=== PATIENT | female | born 1940 | race Caucasian/White ===

== ENCOUNTER 2017-03-30 08:32 | Outpatient (CLI) | payer OTHER ==
[2013-07-20 13:41] VITALS: BMI 28.1
--- NOTE | 2017-03-30 09:09 | DI ---
EXAM: Three views of the thoracic spine. History: Thoracic back pain. Findings: Atherosclerotic vascular calcifications. Mild to moderate multilevel degenerative disc s pace narrowing with a few prominent anterior osteophytes. Osteopenia. No acute fracture or subluxa tion. Impression: No acute osseous abnormality. Mild to moderate degenerative disc disease.
--- NOTE | 2017-03-30 09:10 | DI ---
EXAM: CHEST FRONTAL AND LATERAL VIEWS HISTORY: Chest pain. COMPARISON: None FINDINGS: Heart size and mediastinal contour within normal limits. No acute infiltrates. María l vascularity with no pleural fluid or pneumothorax. The bony thorax has no acute finding. IMPRESSION: No acute process.
--- NOTE | 2017-03-30 09:12 | DI ---
EXAM: Lumbar spine three view HISTORY: Back pain COMPARISON: None TECHNIQUE: Three views lumbar spine were performed FINDINGS: Sacroiliac joints intact. Sacral arcuate lines intact. Vertebral bodies normal height. No fracture. No subluxation. Multilevel marginal osteophyte formation. Mild multilevel intervert ebral disc space narrowing with moderate intervertebral disc space narrowing L3-L4 and mild to moder ate intervertebral disc space narrowing L2-L3 and L4-L5. Multilevel facet arthrosis. Atherosclerot ic vascular calcification. IMPRESSION: Chronic discogenic degenerative disease and facet arthrosis.
== END 2017-03-30 08:33 | disposition home or self-care (01) ==
LOC: RAD 08:32
PROVIDERS: ATTEND Internal Medicine
DX: R07.9 Chest pain, unspecified (principal); M54.9 Dorsalgia, unspecified

== ENCOUNTER 2017-04-01 06:33 | Outpatient (CLI) ==
[2013-07-20 13:41] VITALS: BMI 28.1
--- NOTE | 2017-04-01 10:34 | NM ---
EXAM: The myocardial perfusion imaging HISTORY: chest pain and shortness of breath COMPARISON: None. TECHNIQUE: The patient was injected 4 mCi of thallium 201 chloride intravenously while at rest. SPE CT imaging of the heart was acquired. The patient was stressed on a treadmill using Michael protocol and at peak exercise injected 24.3 mCi of Tc99m Sestamibi intravenously. Another SPECT imaging of t he heart was performed. Gated cardiac study was acquired. FINDINGS: Post stress study shows normal left ventricular cavity size. Isotope distribution is homo geneous in the left ventricle myocardium. No evidence of exercise induced reversible ischemia. No fixed defect is noted. Left ventricular ejection fraction is 78%. Wall motion shows no abnormality. IMPRESSION: 1. SPECT myocardial imaging at stress and rest is normal 2. Normal cardiac systolic function and normal wall motion
--- NOTE | 2017-04-05 14:52 | STRESSECHO ---
Date of Test: 04/01/17 Reason for Exam: CHEST PAIN, SOB, STENT 2012 Ordering Physician: ALICE العلي Resting EKG: SINUS RHYTHM/NO ACUTE CHANGES Current Medications: CRESTOR, ZEBETA, COZAAR, ZANAFLEX, ATIVAN, NORCO, ASA Physical Findings: S1, S2, NO S3 Target Heart Rate: 119/141 STAGE MPH/GRADE HEART RATE BPM BLOOD PRESSURE mmhg RHYTHM S-T SEGMENT +/- UP DOWN SYMPTOMS,COMMENTS At Rest 65 136/74 SR X NONE 1 1.7/10% 90 144/74 SR X NONE 2 2.5/12% 96 SR X NONE 3 3.4/14% 4 4.2/16% 5 5.0/18% Immediately after 105 SR X FATIGUE Durations of Exercise: 9:29 Maximum Heart Rate Reached: 105 Reason for Termination: FATIGUE 5 MIN POST EXERCISE: HR 66 BPM, BP 138/82, SR, +/- INTERPRETATION: 98% OXYGEN SATURATION WITH EXERCISE ON ROOM AIR METS 5.[address]-T WAVE CHANGES 2. NO CHEST PAIN OR CHEST DISCOMFORT 3. NO ARRHYTHMIAS 4. BLOOD PRESSURE RESPONSE: NORMAL NORMAL LEFT VENTRICULAR CONTRACTILITY--RESTING AND POST EXERCISE SESTAMIBI TO FOLLOW MTDD
--- NOTE | 2017-04-07 13:21 | ECHO2D ---
Date of Exam: 04/01/17 Ordering Physician: ALICE العلي Reason for Echo: CHEST PAIN, SOB, STENT 2013, CAD M-Mode Normal Adult Results LV Dimensions Normal Adult Results AoV Opening excursions >1.6 >1.6 LVEDD-base- 3.5-5.8 4.9 Ao root dimensions 2.0-3.7 3.4 LVESD-base- 3.1-4.6 L. Atrium dimensions 1.9-3.8 4.2 Post. Wall thickness 0.8-1.1 1.2 IV septum (thickness) 0.7-1.2 1.2 Post. Wall excursion 0.72-1.3 NORMAL Septal motion NORMAL Systolic motion R. Ventricular cavity 1.5-2.0 NORMAL LVEF 60% 65% Paradoxical septal wall motion NORMAL 2-D : 2-D M Mode Echocardiogram was performed using apical four chamber and left parasternal long and short axis views. Mitral, tricuspid and aortic valves appear to be normal. Contractility of the left ventricle seems to be normal, so is the cavity size. Left atrial cavity enlarged. Aortic root appears to be normal. There is no pericardial effusion. There is no thrombus noted in the left ventricular or left aortic cavity. No mitral valve prolapse noted. M-MODE: MV: NORMAL AV: NORMAL TV: NORMAL PV: CHAMBER SIZE: ENLARGED LEFT ATRIAL CAVITY WALL MOTION: MAYBE MILD INFERIOR WALL HYPOKINESIA PERICARDIUM: NORMAL INTERPRETATION: 1. LEFT VENTRICULAR HYPERTROPHY 2. ENLARGED LEFT ATRIAL CAVITY 3. LEFT VENTRICULAR EJECTION FRACTION 65% 4. NORMAL VALVES MTDD
--- NOTE | 2017-04-07 13:27 | ECHOSTRESS ---
Date of Exam: 04/01/17 Ordering Physician: ALICE العلي Reason for Echo: CHEST PAIN, SOB, STENT 2012, STRESS TEST--NO ISCHEMIA M-Mode Normal Adult Results LV Dimensions Normal Adult Results AoV Opening excursions >1.6 LVEDD-base- 3.5-5.8 Ao root dimensions 2.0-3.7 LVESD-base- 3.1-4.6 L. Atrium dimensions 1.9-3.8 Post. Wall thickness 0.8-1.1 IV septum (thickness) 0.7-1.2 Post. Wall excursion 0.72-1.3 Septal motion Systolic motion R. Ventricular cavity 1.5-2.0 LVEF 60% Paradoxical septal wall motion 2-D: NORMAL LEFT VENTRICULAR CONTRACTILITY--RESTING AND POST EXERCISE M-MODE: MV: AV: TV: PV: CHAMBER SIZE: WALL MOTION: NORMAL LEFT VENTRICULAR CONTRACTILITY--RESTING AND POST EXERCISE PERICARDIUM: INTERPRETATION: 1. NORMAL LEFT VENTRICULAR CONTRACTILITY--RESTING AND POST EXERCISE MTDD
== END 2017-04-01 06:34 | disposition home or self-care (01) ==
LOC: CAR 06:33
PROVIDERS: ATTEND Internal Medicine
DX: R07.9 Chest pain, unspecified (principal); R06.02 Shortness of breath

== ENCOUNTER 2018-09-07 06:43 | Outpatient (CLI) | payer OTHER ==
[2013-07-20 13:41] VITALS: BMI 28.1
--- NOTE | 2018-09-07 08:34 | ECHO2D ---
Date of Exam: 09/07/18 Ordering Physician: DR. ALICE العلي Room # : OP Reason for Echo: SOB, CAD WITH STENT M-Mode Normal Adult Results LV Dimensions Normal Adult Results AoV Opening excursions >1.6 >1.6 LVEDD-base- 3.5-5.8 4.0 Ao root dimensions 2.0-3.7 3.1 LVESD-base- 3.1-4.6 L. Atrium dimensions 1.9-3.8 4.2 Post. Wall thickness 0.8-1.1 1.2 IV septum (thickness) 0.7-1.2 1.2 Post. Wall excursion 0.72-1.3 NORMAL Septal motion NORMAL Systolic motion R. Ventricular cavity 1.5-2.0 NORMAL LVEF 60% 70% Paradoxical septal wall motion NORMAL 2-D : 2-D M Mode Echocardiogram was performed using apical four chamber and left parasternal long and short axis views. Mitral, tricuspid and aortic valves appear to be normal. Contractility of the left ventricle seems to be normal, so is the cavity size. Enlarged Left atrial cavity size. Aortic root appears to be normal. There is no pericardial effusion. There is no thrombus noted in the left ventricular or left aortic cavity. No mitral valve prolapse noted. M-MODE: MV: NORMAL AV: NORMAL TV: NORMAL PV: CHAMBER SIZE: ENLARGED LEFT ATRIAL CAVITY WALL MOTION: NORMAL PERICARDIUM: NORMAL INTERPRETATION: 1. BORDERLINE LEFT VENTRICULAR HYPERTROPHY WITH ENLARGED LEFT ATRIAL CAVITY 2. NORMAL VALVES 3. NORMAL LEFT VENTRICULAR CONTRACTILITY MTDD
== END 2018-09-07 06:44 | disposition home or self-care (01) ==
LOC: CAR 06:43
PROVIDERS: ATTEND Internal Medicine
DX: R06.02 Shortness of breath (principal); I25.10 Atherosclerotic heart disease of native coronary artery without angina pectoris; Z95.5 Presence of coronary angioplasty implant and graft

== ENCOUNTER 2018-09-08 06:46 | Outpatient (CLI) | payer OTHER ==
[2013-07-20 13:41] VITALS: BMI 28.1
--- NOTE | 2018-09-08 09:33 | ECHOSTRESS ---
Date of Exam: 09/08/18 Ordering Physician: DR. ALICE العلي Reason for Echo: SOB, CAD WITH STENT, STRESS TEST--POSITIVE FOR ISCHEMIA M-Mode Normal Adult Results LV Dimensions Normal Adult Results AoV Opening excursions >1.6 LVEDD-base- 3.5-5.8 Ao root dimensions 2.0-3.7 LVESD-base- 3.1-4.6 L. Atrium dimensions 1.9-3.8 Post. Wall thickness 0.8-1.1 IV septum (thickness) 0.7-1.2 Post. Wall excursion 0.72-1.3 Septal motion Systolic motion R. Ventricular cavity 1.5-2.0 LVEF 60% Paradoxical septal wall motion 2-D: NORMAL LEFT VENTRICULAR CONTRACTILITY--RESTING AND POST EXERCISE M-MODE: MV: AV: TV: PV: CHAMBER SIZE: WALL MOTION: NORMAL LEFT VENTRICULAR CONTRACTILITY--RESTING AND POST EXERCISE PERICARDIUM: INTERPRETATION: 1. NORMAL LEFT VENTRICULAR CONTRACTILITY--RESTING AND POST EXERCISE MTDD
--- NOTE | 2018-09-08 09:48 | STRESSECHO ---
Date of Test: 09/08/18 Ordering Physician: DR. ALICE العلي Occupation: RETIRED Reason for Exam: SOB, CAD WITH STENT Smoking History: NONE Height: 63" Weight: 170 LBS Current Medications: LORTAB, ASA, ZETIA, COZAAR, ZEBETA, ATIVAN Resting EKG: SINUS RHYTHM/ NO ACUTE CHANGES Target Heart Rate: 119/140 S-T SEGMENT STAGE MPH/GRADE HEART RATE BPM BLOOD PRESSURE MMHG RHYTHM +/- ELEVATION DEPRESSION SYMPTOMS AT REST 54 BPM 118/72 MMHG SR X NONE 1 1.7/10% 100 BPM SR X NONE 2 2.5/12% 3 3.4/14% 4 4.2/16% 5 5.0/18% Immediately After 112 BPM 142/72 MMHG SR X FATIGUE Minutes Post Exercise 6:00 53 BPM SR X NONE Minutes Post Exercise DURATION OF EXERCISE: 3:43 MAXIMUM HEART RATE REACHED: 112 BPM REASON FOR TERMINATION: FATIGUE 98% OXYGEN SATURATION WITH EXERCISE ON ROOM AIR METS 6.3 INTERPRETATION: 1. TEST POSITIVE FOR ISCHEMIC ST-T WAVE CHANGES 2. NO CHEST PAIN OR DISCOMFORT 3. NO ARRHYTHMIAS 4. BLOOD PRESSURE RESPONSE: ADEQUATE NORMAL LEFT VENTRICULAR CONTRACTILITY-- RESTING AND POST EXERCISE RECOMMEND: STRESS--CARDIOLITE MTDD
== END 2018-09-08 06:47 | disposition home or self-care (01) ==
LOC: CAR 06:46
PROVIDERS: ATTEND Internal Medicine
DX: R06.02 Shortness of breath (principal); I25.10 Atherosclerotic heart disease of native coronary artery without angina pectoris; Z95.5 Presence of coronary angioplasty implant and graft

== ENCOUNTER 2018-09-11 06:44 | Outpatient (CLI) ==
[2013-07-20 13:41] VITALS: BMI 28.1
--- NOTE | 2018-09-11 10:15 | NM ---
EXAM: Myocardial perfusion imaging HISTORY: Positive stress test COMPARISON: Myocardial perfusion imaging on 04/01/2017 was normal. TECHNIQUE: Patient was injected 3.5 mCi of thallium 201 chloride intravenously while at rest. SPECT imaging of the heart was performed. Patient was stressed on a treadmill and at peak exercise injecte d 24.8 mCi of Tc99m Sestamibi intravenously. Another SPECT imaging of the heart was acquired. Gated cardiac study was also performed. FINDINGS: Post stress images show normal left ventricular cavity size. Slightly reduced perfusion is noted involving the mid septal wall as well as left ventricle apex. These areas show some reperfusi on. Left ventricular ejection fraction is 72%. Wall motion appears normal. IMPRESSION: 1. SPECT myocardial imaging demonstrates mild degree of reversible ischemia involving the left ventr icle apex and mid septal wall. 2. Normal left ventricular ejection fraction
--- NOTE | 2018-09-12 08:36 | STRESSSESS ---
Date of Test: 09/11/18 Ordering Physician: DR. ALICE العلي Occupation: RETIRED Reason for Exam: POSITIVE STRESS TEST Smoking History: NONE Height: 63" Weight: 172 LBS Current Medications: LORTAB, ASA, ZETIA, COZAAR, ZEBETA, ATIVAN Target Heart Rate: 113/140 Resting EKG: SINUS RHYTHM/NON SPECIFIC ST-T WAVE S-T SEGMENT STAGE MPH/GRADE HEART RATE BPM BLOOD PRESSURE MMHG RHYTHM +/- ELEVATION DEPRESSION SYMPTOMS AT REST 54 BPM 130/72 MMHG SR X NONE 1 1.7/10% 105 BPM 142/60 MMHG SR X NONE 2 2.5/12% 3 3.4/14% 4 4.2/16% 5 5.0/18% Immediately After 110 BPM SR X SHORT OF BREATH Minutes Post Exercise 5:00 58 BPM 128/80 MMHG SR X NONE Minutes Post Exercise DURATION OF EXERCISE: 4:23 MAXIMUM HEART RATE REACHED: 110 BPM REASON FOR TERMINATION: SHORT OF BREATH 96% OXYGEN SATURATION WITH EXERCISE METS 7.0 INTERPRETATION: 1. TEST POSITIVE (BORDERLINE) FOR ISCHEMIC ST-T WAVE CHANGES 2. NO CHEST PAIN OR DISCOMFORT 3. NO ARRHYTHMIAS 4. BLOOD PRESSURE RESPONSE NORMAL SESTAMIBI TO FOLLOW MTDD
== END 2018-09-11 06:45 | disposition home or self-care (01) ==
LOC: CAR 06:44
PROVIDERS: ATTEND Internal Medicine
DX: R06.02 Shortness of breath (principal); R94.39 Abnormal result of other cardiovascular function study
CPT/HCPCS: 93017; 93018

== ENCOUNTER 2018-10-16 12:44 | Outpatient (CLI) | payer OTHER ==
[2013-07-20 13:41] VITALS: BMI 28.1
--- NOTE | 2018-10-16 13:46 | DI ---
EXAM: Two views of the chest. History: Dyspnea with exertion Comparison: Chest radiograph 03/30/2017 Findings: Heart size is normal. No focal consolidation. No appreciable pleural fluid and no pneumo thorax. No acute osseous abnormalities. Atherosclerotic vascular calcifications. Impression: No acute cardiopulmonary process. No change compared to the prior study.
== END 2018-10-16 12:45 | disposition home or self-care (01) ==
LOC: RAD 12:44
PROVIDERS: ATTEND Internal Medicine
DX: R06.09 Other forms of dyspnea (principal)

== ENCOUNTER 2018-12-31 21:19 | Inpatient (IN) | payer OTHER ==
[2018-12-31] MEDS ORDERED: ZOFRAN 4 MG/2 ML IVP STA (21:53)
[2018-12-31] MEDS ORDERED: LACTATED RINGERS 1,000 ML IV STA (21:53)
--- NOTE | 2018-12-31 21:57 | ED.PDOC ---
General ED Provider: Dr. VANNESA MONTES DE OCA Chief Complaint: Fever Stated Complaint: Started with cough 5 days ago Spoke to her doctor was started on Keflex. The cough is non-productive. Today she feels worse with chills/body aches, fever, nausea, vomiting, diarrhea, headache, congestion. Time Seen by Physician: 21:30 Mode of Arrival: Wheelchair Information Source: Patient Exam Limitations: No limitations Primary Care Provider: ALICE العلي Nursing and Triage Documentation Reviewed and Agree: Yes Does patient meet sepsis criteria?: Yes If yes, has appropriate treatment been initiated?: Yes System Inflammatory Response Syndrome: Temp 101F or Greater Sepsis Protocol: For patient's 13 years and over: Temp is 96.8 and below OR 101 and greater Pulse >90 BPM Resp >20/minute Acutely Altered Mental Status Are patient's symptoms suggestive of a new infection, such as: -Pneumonia -Skin, Soft Tissue -Endocarditis -UTI -Bone, Joint Infection -Implantable Device -Acute Abdominal Infection -Wound Infection -Meningitis -Blood Stream Catheter Infection -Unknown Miscellaneous Complaint Exam - Febrile Illness/Adult Complaint/Exam Onset/Duration: 1 day Symptoms Are: Still present Timing: Constant Highest Temperature Recorded: 102.9 Initial Severity: Moderate Current Severity: Moderate Associated Signs and Symptoms: Reports: Headache, Cough, Sore throat Pseudomonas Risk Factors: Reports: None Serious Bacterial Infection Risk Factors: Reports: None Current Antibiotic Use: Yes (Keflex ) Differential Diagnoses: Bacteremia, Pneumonia, Viremia Quality Indicator For Non-Traumatic Chest Pain/Syncope: EKG Performed Review of Systems - Review Of Systems Constitutional: Reports: Chills, Fever, Malaise Eyes: Reports: No symptoms Ears, Nose, Mouth, Throat: Reports: No symptoms Respiratory: Reports: Cough GI: Reports: Diarrhea, Nausea, Vomiting Musculoskeletal: Reports: Muscle pain Neurological: Reports: Anxiety Endocrine: Reports: No symptoms Hematologic/Lymphatic: Reports: No symptoms All Other Systems: Reviewed and Negative Past Medical History - Past Medical History Endocrine: Reports: Dyslipidemia Cardiovascular: Reports: CAD, Hypertension Respiratory: Reports: None Hematological: Reports: None Gastrointestinal: Reports: None Genitourinary: Reports: None Neuro/Psych: Reports: None Musculoskeletal: Reports: Arthritis, Other (osteoporosis ) Cancer: Reports: None Last Menstrual Period: menopausal - Surgical History General Surgical History: Reports: Hysterectomy, Appendectomy, Stent Placement ( To LAD ) - Family History Family History: Reports: Unknown - Social History Smoking Status: Never smoker Hx Substance Use: No Alcohol Screening: None - Immunizations Tetanus Shot up to Date: No (unsure) Physical Exam - Physical Exam Appearance: Ill-appearing Ill-appearing: Moderate Pain Distress: None Eyes: LILIANA, EOMI Neck: Supple Respiratory: Airway patent, Breath sounds clear, Breath sounds equal, Respirations nonlabored Cardiovascular: RRR, Pulses normal, No rub, No murmur GI/: Soft, Nontender, No masses, Bowel sounds normal, No Organomegaly Musculoskeletal: Normal strength, ROM intact, No edema, No calf tenderness Skin: Warm, Dry Neurological: Motor intact, Alert, Oriented Psychiatric: Anxious Interpretation - Radiology Interpretation Radiology Interpretation By: Radiologist Radiology Results: Positive Exam Interpreted: Portable CXR (Minimal Developing infiltrate versus Atelectasis left lung base. ) Physician Notification - Case Discussed Physician Notified: Dr Jiang Time of Notification: 00:50 (agree to admit, obtain more blood clutures 2 at diff site ) Critical Care Note - Critical Care Note Total Time (mins): 35 Course - Course Hematology/Chemistry: 12/31/18 21:55 12/31/18 21:55 Orders, Labs, Meds: Lab Review 12/31/18 12/31/18 12/31/18 21:55 21:55 21:55 WBC 7.06 RBC 4.86 Hgb 14.9 Hct 44.7 MCV 92.0 MCH 30.7 MCHC 33.3 RDW Coeff of Olive 13.2 Plt Count 187 Immature Gran % (Auto) 0.1 Neut % (Auto) 82.4 Lymph % (Auto) 11.0 Mitchell % (Auto) 5.7 Eos % (Auto) 0.1 Baso % (Auto) 0.7 Immature Gran # (Auto) 0.0 Neut # (Auto) 5.8 Lymph # (Auto) 0.8 Mitchell # (Auto) 0.4 Eos # (Auto) 0.0 Baso # (Auto) 0.1 Puncture Site O2 Saturation ABG pH ABG pCO2 ABG pO2 ABG HCO3 ABG Total CO2 ABG Base Excess Apollo Test FiO2 % Sodium 140.0 Potassium 4.26 Chloride 103.7 Carbon Dioxide 23.6 Anion Gap 16.96 BUN 20.2 H Creatinine 0.93 Estimated GFR (MDRD) 58.00 BUN/Creatinine Ratio 21.72 Glucose 128.3 H Lactic Acid Calcium 9.19 Total Bilirubin 0.66 AST 22.0 ALT 16.9 Alkaline Phosphatase 70.6 Total Protein 7.33 Albumin 4.45 Globulin 2.88 Albumin/Globulin Ratio 1.54 Procalcitonin 0.06 Influ A Molecular Assay Influ B Molecular Assay 12/31/18 12/31/18 12/31/18 21:55 21:55 22:00 WBC RBC Hgb Hct MCV MCH MCHC RDW Coeff of Olive Plt Count Immature Gran % (Auto) Neut % (Auto) Lymph % (Auto) Mitchell % (Auto) Eos % (Auto) Baso % (Auto) Immature Gran # (Auto) Neut # (Auto) Lymph # (Auto) Mitchell # (Auto) Eos # (Auto) Baso # (Auto) Puncture Site Lbrach O2 Saturation 87.0 L ABG pH 7.398 ABG pCO2 32.4 L ABG pO2 52.0 L* ABG HCO3 20.0 L ABG Total CO2 21 L ABG Base Excess -5 L Apollo Test + FiO2 % 21.0 Sodium Potassium Chloride Carbon Dioxide Anion Gap BUN Creatinine Estimated GFR (MDRD) BUN/Creatinine Ratio Glucose Lactic Acid 0.78 Calcium Total Bilirubin AST ALT Alkaline Phosphatase Total Protein Albumin Globulin Albumin/Globulin Ratio Procalcitonin Influ A Molecular Assay Positive by naat H Influ B Molecular Assay Negative by naat Orders Category Date Time Status ABG DRAW REQUEST Routine CARDIO 12/31/18 22:01 Completed EKG-(ED ONLY) Stat CARDIO 12/31/18 22:00 Completed OXYGEN Routine CARDIO 12/31/18 23:21 Ordered INTAKE & OUTPUT Q8HR CARE 12/31/18 23:22 Active VITAL SIGNS Q4HR CARE 12/31/18 23:22 Active REGULAR DIET DIETARY 12/31/18 Breakfast Ordered ED APPLY O2 .ONCE EMERGENCY 12/31/18 21:44 Active ED METAL POLISHER AND BUFFER APPRENTICE APPLIED .ONCE EMERGENCY 12/31/18 21:44 Active ED VITAL SIGNS Q1HR EMERGENCY 12/31/18 21:44 Active ABG Stat LAB 12/31/18 22:00 Completed BASIC METABOLIC PANEL DAILY@0600 LAB 01/01/19 06:00 Ordered BASIC METABOLIC PANEL DAILY@0600 LAB 01/02/19 06:00 Ordered BLOOD CULTURE (ED ONLY) Stat LAB 12/31/18 21:55 Received BLOOD CULTURE Stat LAB 01/01/19 00:44 Ordered CBC W/ AUTO DIFF DAILY@0600 LAB 01/01/19 06:00 Ordered CBC W/ AUTO DIFF DAILY@0600 LAB 01/02/19 06:00 Ordered CBC W/ AUTO DIFF Stat LAB 12/31/18 21:55 Completed COMPREHENSIVE METABOLIC PANEL Stat LAB 12/31/18 21:55 Completed FLU A/B MOLECULAR Stat LAB 12/31/18 21:55 Completed LACTIC ACID Stat LAB 12/31/18 21:55 Completed MOLECULAR GROUP A STREP Stat LAB 12/31/18 21:05 Completed PROCALCITONIN Stat LAB 12/31/18 21:55 Completed URINALYSIS C & S IF INDICATED Stat LAB 12/31/18 21:44 Uncollected Acetaminophen [Tylenol] MEDS 12/31/18 23:21 Discontinued 1,000 mg PO ONCE STA Acetaminophen [Tylenol] MEDS 12/31/18 23:21 Ordered 650 mg PO Q4H PRN Aspirin [Aspirin EC] MEDS 01/01/19 09:00 Ordered 81 mg PO DAILY Azithromycin Inj [Zithromax] 500 mg MEDS 12/31/18 22:22 Discontinued 0.9 % Sodium Chloride [Sodium Chloride] 250 ml IV ONCE Azithromycin [Zithromax] MEDS 01/01/19 23:25 Ordered 250 mg PO DAILY Bisoprolol Fumarate [Zebeta] MEDS 01/01/19 09:00 Ordered 5 mg PO DAILY Ceftriaxone Sodium [Rocephin] MEDS 12/31/18 22:27 Discontinued 1 gm .ROUTE .STK-MED ONE Ceftriaxone Sodium [Rocephin] 1 gm MEDS 01/01/19 09:00 Ordered 0.9 % Sodium Chloride [Sodium Chloride] 50 ml IV DAILY Ceftriaxone Sodium [Rocephin] 1 gm MEDS 12/31/18 22:22 Discontinued 0.9 % Sodium Chloride [Sodium Chloride] 50 ml IV ONCE Enoxaparin Sodium [Lovenox] MEDS 01/01/19 09:00 Ordered 40 mg SUBCUT DAILY Ezetimibe [Zetia] MEDS 01/01/19 09:00 Ordered 10 mg PO DAILY Hydrocodone Bit/Acetaminophen [[place] 5-325] MEDS 01/01/19 21:00 Ordered DOSE tab PO BEDTIME Lorazepam [Ativan] MEDS 01/01/19 21:00 Ordered 1 mg PO BEDTIME Losartan Potassium [Cozaar] MEDS 01/01/19 09:00 Ordered 100 mg PO DAILY Ondansetron HCl/Pf [Zofran 4 mg/2 ml] MEDS 12/31/18 21:53 Discontinued 4 mg IVP ONCE STA Ondansetron HCl/Pf [Zofran 4 mg/2 ml] MEDS 12/31/18 23:21 Ordered 4 mg IVP Q6H PRN Oseltamivir Phosphate [Tamiflu] MEDS 12/31/18 23:21 Discontinued 75 mg PO ONCE STA POTASSIUM CHLORIDE/D5-0.45NACL @ 125 MLS/HR(1000ml) MEDS 01/01/19 00:48 Ordered Potassium Chloride/D5-0.45NACL [D5%-1/2Ns-KCl 20 Meq/l IV Delphine] 1,000 ml IV 125 mls/hr Ringers Lactated Solution [Lactated Ringers] 1,000 ml MEDS 12/31/18 21:53 Discontinued IV BOLUS RESUSCITATION STATUS Routine OTHERS 12/31/18 23:21 Ordered CHEST, 2 VIEWS PA & LAT Stat RADS 12/31/18 21:44 Completed Medications Generic Name Dose Route Start Last Admin Trade Name Freq PRN Reason Stop Dose Admin Acetaminophen 650 mg 12/31/18 23:21 Tylenol PO Q4H PRN Fever or mild pain Hydrocodone Bitart/Acetaminophen tab 01/01/19 21:00 [place] 5-325 PO BEDTIME [facility] Aspirin 81 mg 01/01/19 09:00 Aspirin Ec PO DAILY [facility] Azithromycin 250 mg 01/01/19 23:25 Zithromax PO 01/04/19 09:01 DAILY [facility] Bisoprolol Fumarate 5 mg 01/01/19 09:00 Zebeta PO DAILY [facility] Ezetimibe 10 mg 01/01/19 09:00 Zetia PO DAILY [facility] Enoxaparin Sodium 40 mg 01/01/19 09:00 Lovenox SUBCUT DAILY [facility] Ceftriaxone Sodium 1 gm/ 50 mls @ 75 mls/hr 01/01/19 09:00 Sodium Chloride IV 01/04/19 08:59 DAILY [facility] Potassium Chloride/Dextrose/Sod Cl 1,000 mls @ 125 mls/hr 01/01/19 00:48 D5%-1/2ns-Kcl 20 Meq/L Iv Delphine IV 01/01/19 08:47 .Q8H STA Lorazepam 1 mg 02/04/19 21:00 Ativan PO BEDTIME [facility] Losartan Potassium 100 mg 01/01/19 09:00 Cozaar PO DAILY [facility] Ondansetron HCl 4 mg 12/31/18 23:21 Zofran 4 Mg/2 Ml IVP Q6H PRN Nausea / Vomiting Discontinued Medications Generic Name Dose Route Start Last Admin Trade Name Freq PRN Reason Stop Dose Admin Acetaminophen 1,000 mg 12/31/18 23:21 12/31/18 23:37 Tylenol PO 12/31/18 23:22 1,000 mg ONCE STA Administration Lactated Ringer's 1,000 mls @ 1,000 mls/hr 12/31/18 21:53 12/31/18 22:28 Lactated Ringers IV 12/31/18 22:52 1,000 mls/hr BOLUS STA Administration Ceftriaxone Sodium 1 gm/ 50 mls @ 75 mls/hr 12/31/18 22:22 12/31/18 22:28 Sodium Chloride IV 12/31/18 23:01 75 mls/hr ONCE STA Administration Azithromycin 500 mg/ Sodium 250 mls @ 125 mls/hr 12/31/18 22:22 12/31/18 23: 54 Chloride IV 01/01/19 00:21 125 mls/hr ONCE STA Administration Ondansetron HCl 4 mg 12/31/18 21:53 12/31/18 22:29 Zofran 4 Mg/2 Ml IVP 12/31/18 21:54 4 mg ONCE STA Administration Oseltamivir Phosphate 75 mg 12/31/18 23:21 12/31/18 23:37 Tamiflu PO 12/31/18 23:22 75 mg ONCE STA Administration Vital Signs: Temp Pulse Resp BP Pulse Ox 12/31/18 21:24 102.9 F H 89 20 133/82 92 L Departure - Departure Time of Disposition: 00:50 Disposition: ADMITTED INPATIENT Discharge Problem: Influenza A Pneumonia Qualifiers: Pneumonia type: due to unspecified organism Laterality: left Lung location: lower lobe of lung Qualified Code(s): J18.1 - Lobar pneumonia, unspecified organism Condition: Fair Pt referred to PMD for follow-up: Yes IPMP verified?: No Allergies/Adverse Reactions: Allergies No Known Allergies Allergy (Unverified 12/31/18 21:34) Home Medications: Ambulatory Orders Aspirin [Ecotrin] 81 mg PO DAILY 12/31/18 Bisoprolol Fumarate [Zebeta] 5 mg PO DAILY 12/31/18 Ezetimibe [Zetia] 10 mg PO DAILY 12/31/18 Hydrocodone Bit/Acetaminophen [[place] 5-325] 5 - 325 mg PO BEDTIME 12/31/18 Lorazepam [Ativan] 1 mg PO BEDTIME 12/31/18 Losartan Potassium [Cozaar] 100 mg PO DAILY 12/31/18
--- NOTE | 2018-12-31 22:07 | DI ---
EXAM: Two-view chest HISTORY: Cough COMPARISON: Two-view chest 10/16/2018 FINDINGS: The cardiomediastinal silhouette is stable. The right lung is clear. Hazy opacity is not ed the left lung base which may be related to atelectasis or developing infiltrate. IMPRESSION: Minimal developing infiltrate versus atelectasis left lung base. Stable cardiomediastinal silhouette
[2018-12-31] MEDS ORDERED: ROCEPHIN 1 GM in SODIUM CHLORIDE 50 ML IV STA (22:22)
[2018-12-31] MEDS ORDERED: ZITHROMAX 500 MG in SODIUM CHLORIDE 250 ML IV STA (22:22)
[2018-12-31] MEDS ORDERED: ROCEPHIN ONE (22:27)
[2018-12-31] MEDS ORDERED: ZOFRAN 4 MG/2 ML IVP PRN (23:21)
[2018-12-31] MEDS ORDERED: TYLENOL PO STA (23:21)
[2018-12-31] MEDS ORDERED: TAMIFLU PO STA (23:21)
[2018-12-31] MEDS ORDERED: TYLENOL PO PRN (23:21)
[2018-12-31] MEDS ORDERED: SODIUM CHLORIDE 0.9%-KCL 20 MEQ 1,000 ML IV SCH (23:30)
[2019-01-01] MEDS ORDERED: D5%-1/2NS-KCL 20 MEQ/L IV SOL 1,000 ML IV STA (00:48)
[2019-01-01 01:47] VITALS: BMI 30.6
[2019-01-01] MEDS ORDERED: ZITHROMAX PO SCH (09:00)
[2019-01-01] MEDS ORDERED: TAMIFLU PO SCH (09:00)
[2019-01-01] MEDS: ROCEPHIN 1 GM in SODIUM CHLORIDE 50 ML IV SCH (09:10)
[2019-01-01] MEDS: LOVENOX SUBCUT SCH (09:11)
[2019-01-01] MEDS: ASPIRIN EC PO SCH ×2 (10:03→10:31)
[2019-01-01] MEDS: ZETIA PO SCH ×2 (10:03→10:30)
[2019-01-01] MEDS: COZAAR PO SCH ×2 (10:04→10:29)
[2019-01-01] MEDS: TAMIFLU PO SCH ×3 (10:06→20:22)
[2019-01-01] MEDS: ZEBETA PO SCH ×2 (10:11→10:29)
[2019-01-01] MEDS: OXYCODONE PO PRN ×2 (10:38→20:34)
[2019-01-01] MEDS ORDERED: INFUVITE ADULT IV ONE ×2 (10:45→23:43)
[2019-01-01] MEDS: INFUVITE ADULT 10 ML in D5%-1/2NS-KCL 20 MEQ/L IV SOL 1,000 ML IV SCH ×2 (10:45→23:48)
[2019-01-01] MEDS: ATIVAN PO SCH (20:20)
[2019-01-01] MEDS: ZITHROMAX PO SCH (20:28)
[2019-01-01] MEDS ORDERED: ZITHROMAX 500 MG in SODIUM CHLORIDE 250 ML IV SCH (21:00)
[2019-01-01] MEDS ORDERED: NORCO 5-325 PO SCH (21:00)
[2019-01-02] MEDS: ASPIRIN EC PO SCH (09:32)
[2019-01-02] MEDS: COZAAR PO SCH (09:32)
[2019-01-02] MEDS: ROCEPHIN 1 GM in SODIUM CHLORIDE 50 ML IV SCH (09:32)
[2019-01-02] MEDS: ZETIA PO SCH (09:33)
[2019-01-02] MEDS: ZEBETA PO SCH (09:33)
[2019-01-02] MEDS: TAMIFLU PO SCH ×2 (09:33→21:05)
[2019-01-02] MEDS: LOVENOX SUBCUT SCH (09:34)
[2019-01-02] MEDS ORDERED: INFUVITE ADULT IV ONE (14:55)
[2019-01-02] MEDS: INFUVITE ADULT 10 ML in D5%-1/2NS-KCL 20 MEQ/L IV SOL 1,000 ML IV SCH (15:02)
[2019-01-02] MEDS: ZITHROMAX PO SCH (21:05)
[2019-01-02] MEDS: ATIVAN PO SCH (21:05)
[2019-01-03] MEDS ORDERED: INFUVITE ADULT IV ONE ×2 (02:26→15:51)
[2019-01-03] MEDS: INFUVITE ADULT 10 ML in D5%-1/2NS-KCL 20 MEQ/L IV SOL 1,000 ML IV SCH ×2 (02:31→15:58)
[2019-01-03] MEDS: ASPIRIN EC PO SCH (08:45)
[2019-01-03] MEDS: COZAAR PO SCH (08:45)
[2019-01-03] MEDS: TAMIFLU PO SCH ×2 (08:45→20:31)
[2019-01-03] MEDS: ZETIA PO SCH (08:45)
[2019-01-03] MEDS: ZEBETA PO SCH (08:46)
[2019-01-03] MEDS: ROCEPHIN 1 GM in SODIUM CHLORIDE 50 ML IV SCH (08:47)
[2019-01-03] MEDS: LOVENOX SUBCUT SCH (08:48)
[2019-01-03] MEDS ORDERED: ROCEPHIN 1 GM in SODIUM CHLORIDE 50 ML IV SCH (14:26)
[2019-01-03] MEDS: ATIVAN PO SCH (20:31)
[2019-01-03] MEDS: OXYCODONE PO PRN (20:37)
[2019-01-04] MEDS ORDERED: INFUVITE ADULT IV ONE (02:38)
[2019-01-04] MEDS: INFUVITE ADULT 10 ML in D5%-1/2NS-KCL 20 MEQ/L IV SOL 1,000 ML IV SCH (03:24)
[2019-01-04] MEDS: ASPIRIN EC PO SCH (08:06)
[2019-01-04] MEDS: ZETIA PO SCH (08:06)
[2019-01-04] MEDS: COZAAR PO SCH (08:06)
[2019-01-04] MEDS: TAMIFLU PO SCH (08:07)
[2019-01-04] MEDS: ZEBETA PO SCH (08:07)
[2019-01-04] MEDS: LOVENOX SUBCUT SCH (08:08)
--- NOTE | 2019-01-04 10:58 | DI ---
EXAM: CHEST FRONTAL AND LATERAL VIEWS HISTORY: Pneumonia, follow-up. COMPARISON: 12/31/2018 FINDINGS / IMPRESSION: Heart size and mediastinal contour remain within normal limits. Previously seen left base density has mostly resolved. There is a trace left pleural effusion which is less no ticeable. Lungs are otherwise clear.
[2019-01-04] MEDS ORDERED: TAMIFLU PO ONE (14:31)
[2019-01-04 15:08] VITALS: BP 147/71; TEMP 97.7
--- NOTE | 2019-01-05 11:52 | HP ---
DATE OF SERVICE: 01/01/19 CHIEF COMPLAINT: Cough, nausea, vomiting and malaise. HISTORY OF PRESENT ILLNESS: The patient began experiencing cough about 4 days prior to presentation to the emergency room. The problem continued and the patient developed nausea and vomiting the day before admission. She claimed that she had not had any substantial intake of liquids or solids because of the nausea. The patient later on had fever and chills. Also did complain of headache and sensation of chest congestion plus diarrhea. The patient at the emergency room was found to have a positive Influenza A but nuclear amplification and the B was negative. The patient was advised admission. This patient had been given Keflex at the beginning of the cough but the problem had worsened in spite of the Keflex. The patient was given a bolus 1,000 lactated ringers in one hour. Labs showed normal CBC, normal WBC, hgb, hct as well as plt count. Atrial blood gasses showed moderated hypoxemia to severe with oxygen desaturation. ABG at 21 FiO2 showed oxygen saturation 97, pH 7.398, pCO2 32.4, pO2 52.0, HCO3 20, total CO2 21 minus 5. Electrolytes normal, BUN elevated 20.2, EGFR 58, creatinine 0.93, procalcitonin normal 0.06. Urinalysis 2+ ketones, specific gravity 1.020. 2-5 RBC otherwise unremarkable. The patient's temperature at the emergency room was 102.9. PAST PERSONAL HISTORY: Hypertensive Dyslipidemia Osteoarthritis Coronary artery disease post cardiac catheterization and stent Hysterectomy Appendectomy Bilateral cataract extraction FAMILY HISTORY: Brother heart problems but still alive Mother asthma Father had heart problems and age 63. SOCIAL HISTORY: The patient is and resides with her . 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 Never did smoke cigarettes and alcoholic beverages socially. MEDICATIONS: Lorazepam 1mg at bedtime Zebeta 5mg daily Aspirin 81mg daily Losartan 100mg daily Zetia 10mg daily Hydrocodone/APAP 5-325 one at bedtime ALLERGIES: Azithromycin REVIEW OF SYSTEMS: CONSTITUTIONAL: The patient has fever and chills with fatigue. FRUIT LOADER: The patient had significant headaches but no ataxia. No syncopal episode or no seizure events. VISUAL: Denies any blurred vision, double vision or transient loss of vision. AUDITORY: No dizziness, no tinnitus, no pain or drainage. Hearing is adequate. RESPIRATORY: The patient has cough, persistent becoming more productive. She did have some shortness of breath, no hemoptysis. CARDIOVASCULAR: No chest tightness. No diaphoresis or weakness. GASTROINTESTINAL: The patient has nausea, vomiting as well as diarrhea. The patient's oral intake was very limited because of the nausea that persisted. GENITOURINARY: Denies any pain, frequency or urgency of urination. MUSCULOSKELETAL: The patient has muscular aches, generalized and had history of back pain, osteoarthritis lumbar area. She does take Hydrocodone/APAP one at night. ENDOCRINE: Negative INTEGUMENT: Denies any rash or pruritus or ecchymosis HEMATOLOGIC: No history of prolonged bleeding or spontaneous bleeding and no history of any spontaneous ecchymosis PSYCHIATRIC: Affect is normal PHYSICAL EXAMINATION: GENERAL: 79 year old female admitted to the hospital because of shortness of breath, nausea, vomiting and diarrhea plus fever and chills. She had been sick in the last 4 days prior to presentation to the emergency room and subsequent admission. VITAL SIGNS: Temperature 102.9, pulse 89, blood pressure 133/82, respiratory rate 20, oxygen saturation 92 at room air. The patient is 5'3 and 172 pounds. HEAD: Unremarkable. FACE: Symmetrical and equal with no facial weakness. The patient denies any tenderness in the frontal and maxillary sinus areas to palpation under pressure. EYES: Pupils equal/reactive to light. Conjunctivae not pale. Sclerae not icteric. 3mmin size. MOUTH: Unremarkable. THROAT: No inflammation, tumors or exudate. NECK: No masses. No bruit. No tenderness. No rigidity. CHEST: Symmetrical and equal with good expansion. LUNGS: Breath sounds are heard in both sides with no rales or wheezing. HEART: Audible and regular with good tones. No murmurs. ABDOMEN: Soft with significant tenderness, no muscular guarding, bowel sounds are active. No masses palpable. EXTERNAL GENITALIA: Not done RECTAL: Not done LOWER EXTREMITIES: Symmetrical and equal. No significant edema. Anterior tibials are present. UPPER EXTREMITIES: Symmetrical and equal ASSESSMENT: 1. Acute viral syndrome, Influenza A 2. Moderately severe hypoxemia 3. Minimal pneumonia left lower base 4. History of hypertension on medication 5. History of coronary artery disease status post cardiac catheterization and stent application 6. History of dyslipidemia 7. History of chronic back pain PLAN: 1. Intervenous fluids change to Dextrose 5% 1/2 saline 1,000 cc plus 20 KCL plus MVI at 83cc per hour from normal saline at 125cc. This patient was given 1, 000cc Bolus in the emergency room. 2. The patient is to keep regular diet 3. She was also placed on Tamiflu 75mg twice a day, the order once a day was change on the day of admission. 4. The patient also was given Rocephin 1gram intervenously daily 5. Azithromycin 500mg in the emergency room intervenously. The patient did not have any reaction to the medication. The patient while in the hospital was also given Lovenox 40mg SUBCUT prophylactically. 6. She was continued on her home medications. TIME SPENT: GREATER THAN 65 MINUTES MTDD
--- NOTE | 2019-01-05 13:46 | PN ---
DATE OF SERVICE: 01/02/19 SUBJECTIVE: The patient today is alert, cheerful and conversant. OBJECTIVE: Temperature now had remained normal and her vital signs at 2 p.m. showed a temperature 98.1, pulse 68, BP 130/73, respiratory rate 18, oxygen saturation 96 % on room air. LUNGS: Lungs are still clear to auscultation. HEART: Heart is normal sinus rhythm and good tones. ABDOMEN: Unremarkable. LOWER EXTREMITIES: No tenderness. The patient had been afebrile and blood pressure had been stable. The patient is now eating. Condition improved. MTDD
--- NOTE | 2019-01-05 13:59 | PN ---
DATE OF SERVICE: 01/01/19 SUBJECTIVE: The patient was feeling better in the evening, alert, responsive and cheerful. She is using 2L of nasal oxygen. OBJECTIVE: V/S at 2 p.m. showed a temperature of 100.3, pulse 72, blood pressure 111/52, respiratory rate 18, oxygen saturation 92 on room air. The patient did not eat any dinner. The patient did have some oral liquids. The patient had a plus balance of 2,178 cc. This is probably because of dehydration. The IV of NS was changed to Dextrose 5% in 1/2 Saline plus 20 KCL plus MVI at 83 cc/hr. LUNGS: Remained clear to auscultation. No wheezing. HEART: Audible and regular with good tones. ABDOMEN: No remarkable tenderness. The patient does have some muscular aches. Repeat CBC showed normal WBC, normal hemoglobin/hematocrit and platelet count. Electrolytes normal except for slightly increased chloride 107.4. Blood sugar 152.7, NT-proBNP 184.0. Triglycerides 99.2, total cholesterol 170.7, LDL cholesterol 118, VLDL 20, HDL 32.9, cholesterol/HDL ratio 5.2. Urinalysis unremarkable except for 2+ ketones. CONDITION: Improved. MTDD
--- NOTE | 2019-01-08 13:39 | DS ---
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 The patient had been prescribed Keflex from the primary care office but the problem continued and the patient later developed severe headache, chills, muscle aches plus diarrhea and chest congestion. The patient presented to the emergency room because of the above problems and the initial findings positive for influenza A, normal WBC , oxygen saturation markedly low at 87, pH 7.398, pc02 32.4, p02 52, HC03 20, total c02 21, base excess minus 5, FI02 21%. BUN 20.2, creatinine 0.93, EGFR 58. Blood sugar 128.3 nonfasting, prcalcitonin 0.06. No urinalysis at that time. Chest x-ray minimal developing infiltrate vs atelectasis in the left lung base. Temperature on admission to the emergency room 102.9, pulse rate 89, blood pressure 133/82, oxygen saturation 92 on room air. Height 5'3", 172 lbs. The patient was given 1000 cc of Lactated Ringers in on hour in the emergency room. The patient's temperature had returned to normal on the day of admission and also the early part of 01/01/19. The patient's temperature did rise at two o' clock in the afternoon of 01/01/19 to 100.3. From then on the temperature has returned to normal and stayed normal. Pulse rate was mostly in the mid 60s to mid 70s. There were two occasions where it was 80 and above, one on admission at 89. The blood pressure has remained normal throughout the hospital stay and at times slightly lower. The oxygen saturation has improved from 92 to 97 with 2L of oxygen and again about the same at room air between 91 and 92. The patient 's oxygen saturation had been tested at room air from 01/03/19 and was mostly at 95 with one reading of 94. The last reading on 01/04/19 just before discharge at two o'clock in the afternoon was 97. The patient's vital signs at discharge at two o'clock was 97.7 temperature, pulse 67, blood pressure 147/71, respiratory rate 18, oxygen saturation 97 on room air. The patient at the time of my examination was alert, ambulatory with movement of all extremities and not dyspneic or tachypneic and cheerful. She claimed that she is doing well and feeling good. Her color was good. No dyspnea, no tachypnea. Lungs clear to auscultation in both sides. Heart is audible and regular with good tones. Abdomen soft with no remarkable tenderness and no tenderness in the calf muscles to palpation and Shona's sign was negative. HOSPITAL COURSE: The patient, while in the hospital, was given Azithromycin 500 mg daily for three days and Ceftriaxone 1 gm intravenously daily. She was also given Tamiflu 75 mg twice a day. Tylenol was discontinued. She was continued on her home medications. Prophylactic Lovenox 40 mg subcutaneously daily was given during this hospitalization. The patient was given a dose of Tamiflu before discharge. She had completed a total of eight doses of the Tamiflu. The patient mentioned that the Tamiflu is every expensive and also that the pharmacy does not dispense Tamiflu at one, two or four, whatever is needed. They always give the Tamiflu in a pack of 10. The patient at time of discharge was advised to followup with Dr. England the following week and should call his office on the day of discharge or the next day. She should call him sooner if she has any problems or concerns. If she has recurrence of the problem she should come back to the emergency room if she is unable to get in touch with his office. This patient was receiving Hydrocodone/APAP and this was discontinued in order to eliminate the Tylenol. It was replaced with Oxycodone 5. The patient was instructed to resume all her previous medications, 6 of the antibiotic that was given, to see Dr. England on 01/12/19 at 11:15 a.m. Again, she was instructed to see him sooner if she has any concerns or come back to the emergency room. FINAL DIAGNOSIS: 1. ACUTE VIRAL SYNDROME/INFLUENZA A 2. MODERATE HYPOXEMIA SECONDARY TO #1 MOST LIKELY 3. HISTORY OF HYPERTENSION, TREATED 4. HISTORY OF CORONARY ARTERY DISEASE, STATUS POST CARDIAC CATHETERIZATION AND STENT 5. PAST SURGICAL HISTORY - HYSTERECTOMY, APPENDECTOMY AND CATARACT EXTRACTION 6. HISTORY OF OSTEOARTHRITIS 7. HISTORY OF DYSLIPIDEMIA TIME SPENT: GREATER THAN 30 MINUTES MTDD
--- NOTE | 2019-01-08 14:49 | PN ---
DATE OF VISIT: 01/03/19 The patient, today, is alert, oriented times four. Not dyspneic, nor tachypneic. Cheerful. She claims that she is feeling much better. Her color is good. She looks well and without any distress. She has movement of all extremities. She did not eat very much dinner today. She did better yesterday eating 75%. She did have a bowel movement today. VITAL SIGNS: Temperature 98.1, pulse 68, blood pressure 130/73, respiratory rate 18, oxygen saturation 96 at room air. LUNGS: Clear to auscultation in both sides. HEART: Audible and regular with good tones. No murmurs. ABDOMEN: Soft with no remarkable tenderness. Bowel sounds are active. LOWER EXTREMITIES: Symmetrical and equal. No further labs were done today. This patient's influenza A quantitative was 1: 32 and was positive by nuclear amplification. Liver enzymes had remained normal yesterday. MTDD
== END 2019-01-04 15:32 | disposition home or self-care (01) | DRG 153 ==
LOC: ED 21:19 → MEDSURG B 01-01 00:56
PROVIDERS: ADMIT General Practice; ATTEND General Practice
DX: J11.1 Influenza due to unidentified influenza virus with other respiratory manifestations (principal); J18.1 Lobar pneumonia, unspecified organism; J02.9 Acute pharyngitis, unspecified; M79.10 Myalgia, unspecified site; M19.90 Unspecified osteoarthritis, unspecified site; M54.9 Dorsalgia, unspecified; I10 Essential (primary) hypertension; I25.10 Atherosclerotic heart disease of native coronary artery without angina pectoris; E78.5 Hyperlipidemia, unspecified; F41.9 Anxiety disorder, unspecified; R05 Cough; R11.2 Nausea with vomiting, unspecified; R19.7 Diarrhea, unspecified; R51 Headache; R53.81 Other malaise; R09.02 Hypoxemia
CPT/HCPCS: 36415; 80048; 80053; 80061; 81001; 82803; 83605; 83880; 84145; 85025; 86710; 87040; 87502; 87651; 93005; 93010; 96361; 96365; 96366; 96375; 99285

== ENCOUNTER 2019-05-01 14:46 | Outpatient (CLI) | payer OTHER ==
--- NOTE | 2019-05-02 08:27 | DI ---
EXAM: Two views of the left hip. History: Left hip pain. Findings: No acute fracture or dislocation. Degenerative changes within the lower lumbar spine. Mi ld narrowing of the left hip joint with no significant osteophyte formation. No radiopaque foreign b odies. Impression: 1. No acute osseous abnormality. 2. Mild arthritis of the left hip joint
--- NOTE | 2019-05-02 08:49 | DI ---
EXAM: Five views of the lumbar spine. History: Lower back pain. Findings: Atherosclerotic vascular calcifications. No acute fracture or subluxation of the lumbar s pine. Moderate to severe disc space narrowing at L1-L2 and L3-L4 with endplate sclerosis and osteoph yte formation. Moderate disc space narrowing at L2-L3. Mild to moderate disc space narrowing seen e lsewhere. There is moderate to severe facet hypertrophy at L5-S1. 4 mm calcification seen projectin g over the left renal shadow. Impression: 1. No acute osseous abnormality of the lumbar spine. 2. Degenerative changes. 3. Atherosclerotic vascular disease. 4. Possible left nephrolithiasis
== END 2019-05-01 14:47 | disposition home or self-care (01) ==
LOC: RAD 14:46
PROVIDERS: ATTEND Internal Medicine
DX: M25.552 Pain in left hip (principal); M54.5 Low back pain

== ENCOUNTER 2019-06-16 08:27 | Emergency (ER) | payer OTHER ==
[2019-06-16 08:34] VITALS: BP 159/80; TEMP 99.5; BMI 30.1
--- NOTE | 2019-06-16 08:45 | ED.PDOC ---
General ED Provider: Dr. VANNESA MONTES DE OCA Chief Complaint: Weakness Stated Complaint: Patient comes to the ER with complaints of cough that is productive for 2 days. She was seen at the dentist recently for dental procedure and had laryngitis. States she feels like when she had Pneumonia. Time Seen by Physician: 08:40 Mode of Arrival: Wheelchair Information Source: Patient Exam Limitations: No limitations Primary Care Provider: ALICE العلي Nursing and Triage Documentation Reviewed and Agree: Yes Does patient meet sepsis criteria?: No System Inflammatory Response Syndrome: Not Applicable Sepsis Protocol: For patient's 13 years and over: Temp is 96.8 and below OR 101 and greater Pulse >90 BPM Resp >20/minute Acutely Altered Mental Status Are patient's symptoms suggestive of a new infection, such as: -Pneumonia -Skin, Soft Tissue -Endocarditis -UTI -Bone, Joint Infection -Implantable Device -Acute Abdominal Infection -Wound Infection -Meningitis -Blood Stream Catheter Infection -Unknown Review of Systems - Review Of Systems Constitutional: Reports: Loss of appetite Eyes: Reports: No symptoms Ears, Nose, Mouth, Throat: Reports: Throat pain Respiratory: Reports: Cough Cardiac: Reports: No symptoms GI: Reports: Nausea : Reports: No symptoms Musculoskeletal: Reports: No symptoms Skin: Reports: No symptoms Neurological: Reports: Anxiety Endocrine: Reports: No symptoms Hematologic/Lymphatic: Reports: No symptoms All Other Systems: Reviewed and Negative Past Medical History - Past Medical History Endocrine: Reports: Dyslipidemia Cardiovascular: Reports: CAD, Hypertension Respiratory: Reports: None Hematological: Reports: None Gastrointestinal: Reports: None Genitourinary: Reports: None Neuro/Psych: Reports: None Musculoskeletal: Reports: Arthritis, Other (osteoporosis ) Cancer: Reports: None Last Menstrual Period: hysterectomy - Surgical History General Surgical History: Reports: Hysterectomy, Appendectomy, Stent Placement ( To LAD ) - Family History Family History: Reports: Unknown - Social History Smoking Status: Never smoker Hx Substance Use: No Alcohol Screening: None Physical Exam - Physical Exam Appearance: Ill-appearing Ill-appearing: Mild Neck: Supple Respiratory: Airway patent, Breath sounds clear, Breath sounds equal, Respirations nonlabored Cardiovascular: RRR, Pulses normal, No rub, No murmur GI/: Soft, Nontender, No masses, Bowel sounds normal, No Organomegaly Musculoskeletal: Normal strength, ROM intact, No edema, No calf tenderness Skin: Warm, Dry, Normal color Neurological: Sensation intact Psychiatric: Anxious Interpretation - EKG Interpretation Time of EKG #1: 09:04 Rate: Normal Rhythm: Sinus Ectopy: None Merrill: NL ST Segment: Normal Interpretation: low volate EKG, Non specific ST-T changes Critical Care Note - Critical Care Note Total Time (mins): 30 Course - Course Hematology/Chemistry: 06/16/19 09:00 06/16/19 09:00 Orders, Labs, Meds: Lab Review 06/16/19 06/16/19 06/16/19 09:00 09:00 09:00 WBC 9.17 RBC 4.84 Hgb 15.1 Hct 45.0 MCV 93.0 MCH 31.2 H MCHC 33.6 RDW Coeff of Olive 12.5 Plt Count 195 Immature Gran % (Auto) 0.2 Neut % (Auto) 83.0 Lymph % (Auto) 8.9 L [place] % (Auto) 5.1 Eos % (Auto) 1.7 Baso % (Auto) 1.1 Immature Gran # (Auto) 0.0 Neut # (Auto) 7.6 H Lymph # (Auto) 0.8 [place] # (Auto) 0.5 Eos # (Auto) 0.2 Baso # (Auto) 0.1 Sodium 138.8 Potassium 4.14 Chloride 104.9 Carbon Dioxide 22.2 Anion Gap 15.84 BUN 17.6 H Creatinine 0.81 Estimated GFR (MDRD) 68.00 BUN/Creatinine Ratio 21.72 Glucose 128.8 H Lactic Acid 0.95 Calcium 9.15 Total Bilirubin 0.68 AST 21.6 ALT 17.1 Alkaline Phosphatase 83.3 Total Creatine Kinase 53.6 Troponin I < 0.012 NT-Pro-B Natriuret Pep 188.000 Total Protein 7.20 Albumin 4.47 Globulin 2.73 Albumin/Globulin Ratio 1.63 Procalcitonin 06/16/19 09:00 WBC RBC Hgb Hct MCV MCH MCHC RDW Coeff of Olive Plt Count Immature Gran % (Auto) Neut % (Auto) Lymph % (Auto) [place] % (Auto) Eos % (Auto) Baso % (Auto) Immature Gran # (Auto) Neut # (Auto) Lymph # (Auto) [place] # (Auto) Eos # (Auto) Baso # (Auto) Sodium Potassium Chloride Carbon Dioxide Anion Gap BUN Creatinine Estimated GFR (MDRD) BUN/Creatinine Ratio Glucose Lactic Acid Calcium Total Bilirubin AST ALT Alkaline Phosphatase Total Creatine Kinase Troponin I NT-Pro-B Natriuret Pep Total Protein Albumin Globulin Albumin/Globulin Ratio Procalcitonin 0.10 Orders Category Date Time Status EKG-(ED ONLY) Stat CARDIO 06/16/19 08:46 Completed NEBULIZER TREATMENT Stat CARDIO 06/16/19 08:46 Completed ED BOILER CLEANER APPLIED .ONCE EMERGENCY 06/16/19 08:46 Active ED IV/MEDIPORT/POWERPORT .ONCE EMERGENCY 06/16/19 08:46 Active BLOOD CULTURE (ED ONLY) Stat LAB 06/16/19 09:25 Received CBC W/ AUTO DIFF Stat LAB 06/16/19 09:00 Completed COMPREHENSIVE METABOLIC PANEL Stat LAB 06/16/19 09:00 Completed CREATINE KINASE Stat LAB 06/16/19 09:00 Completed LACTIC ACID Stat LAB 06/16/19 09:00 Completed NT-PROBNP Stat LAB 06/16/19 09:00 Completed PROCALCITONIN Stat LAB 06/16/19 09:00 Completed TROPONIN I Stat LAB 06/16/19 09:00 Completed 0.9 % Sodium Chloride [Saline Flush] MEDS 06/16/19 08:46 Discontinued 1 syr IVF PRN PRN Acetaminophen [Tylenol] MEDS 06/16/19 09:22 Discontinued 650 mg PO ONCE STA Ceftriaxone/D5w 1 gm Premix [Rocephin 1 gm Premix] 1 gm MEDS 06/16/19 09:27 Discontinued Premix 50 ml D5w 1 bag IV ONCE Ceftriaxone/D5w 1 gm Premix [Rocephin 1 gm Premix] 50 MEDS 06/16/19 09:39 Discontinued ml IV .STK-MED Ipratropium/Albuterol Neb [Duoneb] MEDS 06/16/19 08:46 Discontinued 1 vial NEB ONCE STA Ondansetron HCl/Pf [Zofran 4 mg/2 ml] MEDS 06/16/19 08:48 Discontinued 4 mg IVP ONCE STA Sodium Chloride 0.9% [Sodium Chloride] 1,000 ml MEDS 06/16/19 08:47 Discontinued IV 125 mls/hr CHEST, 2 VIEWS PA & LAT Stat RADS 06/16/19 08:40 Completed Medications Discontinued Medications Generic Name Dose Route Start Last Admin Trade Name Freq PRN Reason Stop Dose Admin Acetaminophen 650 mg 06/16/19 09:22 06/16/19 09:28 Tylenol PO 06/16/19 09:23 650 mg ONCE STA Administration Albuterol/Ipratropium 1 vial 06/16/19 08:46 06/16/19 09:12 Duoneb NEB 06/16/19 08:47 1 vial ONCE STA Administration Sodium Chloride 1,000 mls @ 125 mls/hr 06/16/19 08:47 06/16/19 09:27 Sodium Chloride IV 06/16/19 16:46 125 mls/hr .Q8H STA Administration CEFTRIAXONE/D5W 1 GM PREMIX 1 50 mls @ 75 mls/hr 06/16/19 09:27 06/16/19 09: 44 gm/ Dextrose IV 06/16/19 10:06 75 mls/hr ONCE STA Administration Ondansetron HCl 4 mg 06/16/19 08:48 06/16/19 09:32 Zofran 4 Mg/2 Ml IVP 06/16/19 08:49 4 mg ONCE STA Administration Sodium Chloride 1 syr 06/16/19 08:46 06/16/19 09:26 Saline Flush IVF 1 syr PRN PRN Administration To flush IV Vital Signs: Temp Pulse Resp BP Pulse Ox 06/16/19 08:27 99.5 F 85 20 159/80 H 96 Departure - Departure Time of Disposition: 10:45 Disposition: HOME SELF-CARE Discharge Problem: Bronchitis Instructions: Acute Bronchitis (ED) Condition: Stable Pt referred to PMD for follow-up: Yes IPMP verified?: Yes Additional Instructions: Take Medications as prescribed Follow up with PCP in 3 days Prescriptions: Amoxicillin/Potassium Clav [Augmentin 875-125 mg Tab] 1 tab PO Q12HR #20 tablet Albuterol Sulfate [Proair Hfa] 2 puff IH Q6H PRN #1 puff PRN Reason: Cough Benzonatate [Tessalon Perles] 100 mg PO TID PRN #25 capsule PRN Reason: Cold Symptons Allergies/Adverse Reactions: Allergies azithromycin [From Zithromax Z-Avtar] Allergy (Mild, Verified 06/16/19 08:36) Pt stated," cant take it". Home Medications: Ambulatory Orders Aspirin [Ecotrin] 81 mg PO DAILY 12/31/18 Bisoprolol Fumarate [Zebeta] 5 mg PO DAILY 12/31/18 Ezetimibe [Zetia] 10 mg PO DAILY 12/31/18 Hydrocodone Bit/Acetaminophen [[place] 5-325] 5 - 325 mg PO BEDTIME 12/31/18 Lorazepam [Ativan] 1 mg PO BEDTIME 12/31/18 Losartan Potassium [Cozaar] 100 mg PO DAILY 12/31/18 Albuterol Sulfate [Proair Hfa] 2 puff IH Q6H PRN #1 puff 06/16/19 Amoxicillin/Potassium Clav [Augmentin 875-125 mg Tab] 1 tab PO Q12HR #20 tablet 06/16/19 Benzonatate [Tessalon Perles] 100 mg PO TID PRN #25 capsule 06/16/19 Disposition Discussed With: Patient, Family
[2019-06-16] MEDS ORDERED: DUONEB NEB STA (08:46)
[2019-06-16] MEDS ORDERED: SODIUM CHLORIDE 1,000 ML IV STA (08:47)
[2019-06-16] MEDS ORDERED: ZOFRAN 4 MG/2 ML IVP STA (08:48)
--- NOTE | 2019-06-16 09:01 | DI ---
EXAM: PA and lateral views of the chest HISTORY: Cough COMPARISON: 01/04/2019 FINDINGS: Mild left basilar streaky opacities are identified. The right lung is clear. No pneumothorax or ple ural effusion is identified. The cardiomediastinal silhouette is within normal limits. Aortic calcified atherosclerotic plaque is seen. IMPRESSION: Mild left basilar atelectasis versus less likely consolidation.
[2019-06-16] MEDS ORDERED: TYLENOL PO STA (09:22)
[2019-06-16] MEDS ORDERED: ROCEPHIN 1 GM PREMIX 1 GM in PREMIX 50 ML D5W 1 BAG IV STA (09:27)
[2019-06-16] MEDS ORDERED: ROCEPHIN 1 GM PREMIX 50 ML IV ONE (09:39)
== END 2019-06-16 10:40 | disposition home or self-care (01) ==
LOC: ED 08:27
DX: J40 Bronchitis, not specified as acute or chronic (principal); R53.1 Weakness; I25.10 Atherosclerotic heart disease of native coronary artery without angina pectoris; I10 Essential (primary) hypertension; E78.5 Hyperlipidemia, unspecified; Z79.899 Other long term (current) drug therapy
CPT/HCPCS: 36415; 80053; 82550; 83605; 83880; 84145; 84484; 85025; 87040; 93005; 93010; 94640; 96361; 96365; 99283

== ENCOUNTER 2019-09-14 12:34 | Inpatient (IN) ==
[2019-09-14] MEDS ORDERED: SODIUM CHLORIDE 1,000 ML IV STA (12:45)
[2019-09-14] MEDS ORDERED: MORPHINE 4 MG/ML VIAL IVP STA (13:09)
[2019-09-14] MEDS ORDERED: ZOFRAN 4 MG/2 ML IVP STA (13:09)
--- NOTE | 2019-09-14 14:14 | CT ---
EXAM: CT of the abdomen pelvis without contrast History: Vomiting and fever, history of appendectomy. Comparison: Chest CT 09/14/2019 Technique: Multiplanar CT images through the abdomen pelvis were obtained without the administration of IV contrast Findings: Lung bases are clear. No acute osseous abnormalities. Degenerative changes of the spine. Atherosclerotic vascular calcifications. There are several hypoattenuating liver lesions compatibl e with cysts and the largest measures 2.3 cm. There is some atrophy of the pancreas. There is no pe ripancreatic inflammation. Adrenal glands are unremarkable. Spleen is normal. 7 mm calculus within the left kidney. No right renal calculi. There is no hydronephrosis. Nondilated fluid filled loop s of small bowel with adjacent hyperemia. There is fluid seen within the colon. There is mild wall thickening of the colon. The appendix is not seen. No bowel obstruction. Colonic diverticulosis. No bladder wall thickening. Uterus is not seen and likely has been surgically removed. No abdominal aortic aneurysm. No gallstones identified by CT Impression: 1. Mild gastroenterocolitis. No bowel obstruction. 2. Colonic diverticulosis. 3. Nonobstructing left nephrolithiasis. 4. Hepatic cysts
--- NOTE | 2019-09-14 14:15 | CT ---
EXAM: CT of the chest without contrast History: Cough and fever. Comparison: CT abdomen pelvis 09/14/2019, chest radiograph 09/14/2019 Technique: Multiplanar CT images through the thorax were obtained without the administration of IV c ontrast Findings: Heart size is upper limits of normal. Coronary calcifications. No thoracic aortic aneury sm. No pericardial effusion. No pathologically enlarged thoracic lymph nodes. No consolidation. N o pleural fluid and no pneumothorax. Bibasilar subsegmental atelectasis. No suspicious lung masses or lung nodules. For details in the upper abdomen, please see dedicated CT abdomen pelvis done on the same day. No ac chari osseous abnormalities. Impression: 1. No acute intrathoracic process. 2. Coronary artery disease
[2019-09-14] MEDS ORDERED: ZOFRAN TAB PO PRN (14:48)
[2019-09-14] MEDS ORDERED: PROAIR HFA IH PRN (14:48)
--- NOTE | 2019-09-14 14:48 | ED.PDOC ---
General ED Provider: Dr. SCOTT DURAN Chief Complaint: Nausea/Vomiting Stated Complaint: ABDOMINAL PAIN DIFFUSE RETURN PRESENTATION FROM LAST NIGHT NOT IMPROVED Time Seen by Physician: 13:00 Mode of Arrival: Wheelchair Information Source: Patient Exam Limitations: No limitations Primary Care Provider: ALICE العلي Nursing and Triage Documentation Reviewed and Agree: Yes Does patient meet sepsis criteria?: No System Inflammatory Response Syndrome: Not Applicable Sepsis Protocol: For patient's 13 years and over: Temp is 96.8 and below OR 101 and greater Pulse >90 BPM Resp >20/minute Acutely Altered Mental Status Are patient's symptoms suggestive of a new infection, such as: -Pneumonia -Skin, Soft Tissue -Endocarditis -UTI -Bone, Joint Infection -Implantable Device -Acute Abdominal Infection -Wound Infection -Meningitis -Blood Stream Catheter Infection -Unknown GI Complaint Exam Abdominal Pain Complaint/Exam Onset: Gradual Duration: 1 DAY Symptoms Are: Resolved Timing: Intermittent Initial Severity: Moderate Current Severity: Mild Location of Pain: Diffuse Aggravating: Reports None Alleviating: Reports Spontaneous resolution AAA Risk Factors: Reports Hypertension Cardiac Risk Factors: Reports DM (CAD ) and Hypertension Ovarian Torsion Risk Factors: Reports None Surgical Obstruction Risk Factors: Reports None Related Surgical History: Reports None Patient Rh Status: Unknown Abdominal Findings: Present None Differential Diagnoses: Bowel Obstruction, Constipation, Diverticulitis, Gastroenteritis, Irritable Bowel Syndrome, Pneumonia and Renal Colic Quality Indicators for AMI: EKG in 10min. Quality Indicators for Cardiac Chest Pain: EKG in 10min. Quality Indicator For Non-Traumatic Chest Pain/Syncope: EKG Performed Review of Systems Review Of Systems Constitutional: Reports Fever, Malaise, Weakness and Loss of appetite Eyes: Reports No symptoms Ears, Nose, Mouth, Throat: Reports No symptoms Respiratory: Reports Cough Cardiac: Reports No symptoms GI: Reports Abdomen distended : Reports No symptoms Musculoskeletal: Reports No symptoms Skin: Reports No symptoms Neurological: Reports No symptoms Endocrine: Reports No symptoms Hematologic/Lymphatic: Reports No symptoms All Other Systems: Reviewed and Negative Physical Exam Physical Exam Appearance: Well-appearing, No pain distress and Well-nourished Eyes: LILIANA, EOMI and Conjunctiva clear ENT: Ears normal, Nose normal and Oropharynx normal Respiratory: Airway patent, Breath sounds clear, Breath sounds equal and Re spirations nonlabored Cardiovascular: RRR, Pulses normal, No rub and No murmur GI/: Soft, Nontender, No masses, Bowel sounds normal and No Organomegaly Musculoskeletal: Normal strength, ROM intact, No edema and No calf tenderness Skin: Warm, Dry and Normal color Neurological: Sensation intact, Motor intact, Reflexes intact, Cranial nerves intact, Alert and Oriented Psychiatric: Affect appropriate and Mood appropriate Interpretation Radiology Interpretation Radiology Interpretation By: Radiologist Radiology Results: No acute changes Exam Interpreted: CT Scan Retail Link Analyst Rate: Normal Rhythm: Sinus Ectopy: None EKG Interpretation Rate: Normal Rhythm: Sinus Ectopy: None [place]: NL ST Segment: Normal Re-Evaluation Re-Evaluation Time of Re-Evaluation: 14:00 Status: Improved Vital Signs Stable: Yes Pain Level: 0 Appearance: NAD Lungs: Clear Skin: Warm and Dry Neuro: Alert and Oriented X3 CV: RRR Physician Notification Case Discussed Physician Notified: PMD Time of Notification: 14:44 (ADMITT FUL ADMITT ORDER TELM AND ROCEPHIN MAKE SURE EKG IS DONE ) Critical Care Note Critical Care Note Total Time (mins): 0 Course Course Hematology/Chemistry: 09/14/19 12:42 09/14/19 12:43 Orders, Labs, Meds: Lab Review 09/14/19 09/14/19 09/14/19 12:42 12:42 12:42 WBC 7.95 RBC 4.78 Hgb 14.9 Hct 45.6 MCV 95.4 MCH 31.2 H MCHC 32.7 RDW Coeff of Olive 12.9 Plt Count 165 Immature Gran % (Auto) 0.3 Neut % (Auto) 90.0 Lymph % (Auto) 4.0 L Yates % (Auto) 5.3 Eos % (Auto) 0.0 Baso % (Auto) 0.4 Immature Gran # (Auto) 0.0 Neut # (Auto) 7.2 H Lymph # (Auto) 0.3 L Yates # (Auto) 0.4 Eos # (Auto) 0.0 Baso # (Auto) 0.0 Sodium Potassium Chloride Carbon Dioxide Anion Gap BUN Creatinine Estimated GFR (MDRD) BUN/Creatinine Ratio Glucose Lactic Acid 1.16 D Calcium Total Bilirubin AST ALT Alkaline Phosphatase Total Protein Albumin Globulin Albumin/Globulin Ratio Amylase Lipase Procalcitonin 0.20 09/14/19 12:43 WBC RBC Hgb Hct MCV MCH MCHC RDW Coeff of Olive Plt Count Immature Gran % (Auto) Neut % (Auto) Lymph % (Auto) Yates % (Auto) Eos % (Auto) Baso % (Auto) Immature Gran # (Auto) Neut # (Auto) Lymph # (Auto) Yates # (Auto) Eos # (Auto) Baso # (Auto) Sodium 139.1 Potassium 4.21 Chloride 103.3 Carbon Dioxide 27.7 Anion Gap 12.31 BUN 20.8 H Creatinine 0.88 Estimated GFR (MDRD) 62.00 BUN/Creatinine Ratio 23.63 Glucose 127.5 H Lactic Acid Calcium 9.11 Total Bilirubin 0.66 AST 24.6 ALT 18.4 Alkaline Phosphatase 67.9 Total Protein 7.27 Albumin 4.42 Globulin 2.85 Albumin/Globulin Ratio 1.55 Amylase 48.6 Lipase 17.6 L Procalcitonin Orders Category Date Time Status EKG-(ED ONLY) Stat CARDIO 09/14/19 12:42 Completed AMYLASE Stat LAB 09/14/19 12:43 Completed CBC W/ AUTO DIFF Stat LAB 09/14/19 12:42 Completed COMPREHENSIVE METABOLIC PANEL Stat LAB 09/14/19 12:43 Completed LACTIC ACID Stat LAB 09/14/19 12:42 Completed LIPASE Stat LAB 09/14/19 12:43 Completed PROCALCITONIN Stat LAB 09/14/19 12:42 Completed URINALYSIS C & S IF INDICATED Stat LAB 09/14/19 12:44 Uncollected Morphine Sulfate [Morphine 4 mg/ml Vial] MEDS 09/14/19 13:09 Discontinued 4 mg IVP ONCE STA Ondansetron HCl/Pf [Zofran 4 mg/2 ml] MEDS 09/14/19 13:09 Discontinued 4 mg IVP ONCE STA Sodium Chloride 0.9% [Sodium Chloride] 1,000 ml MEDS 09/14/19 12:[address] ABDOMEN/PELVIS WO CONTRAST Stat RADS 09/14/19 12:[address] CHEST W/O CONTRAST Stat RADS 09/14/19 12:44 Completed Medications Discontinued Medications Generic Name Dose Route Start Last Admin Trade Name Freq PRN Reason Stop Dose Admin Sodium Chloride 1,000 mls @ 1,000 mls/hr 09/14/19 12:45 09/14/19 13:00 Sodium Chloride IV 09/14/19 13:44 1,000 mls/hr BOLUS STA Administration Morphine Sulfate 4 mg 09/14/19 13:09 09/14/19 13:56 Morphine 4 Mg/Ml Vial IVP 09/14/19 13:10 4 mg ONCE STA Administration Ondansetron HCl 4 mg 09/14/19 13:09 09/14/19 13:55 Zofran 4 Mg/2 Ml IVP 09/14/19 13:10 4 mg ONCE STA Administration Vital Signs: Temp Pulse Resp BP Pulse Ox 09/14/19 12:35 100.7 F H 78 18 133/79 94 L Discharge Plan Discharge Discharge Problem: Nausea, Vomiting Abdominal pain Qualifiers: Abdominal location: generalized Qualified Code(s): R10.84 - Generalized abdominal pain Prescriptions: No Action hydrocodone-acetaminophen 1 TAB tablet 5 - 325 mg PO BEDTIME RF: 0 aspirin [Ecotrin Low Strength] 81 MG tablet,delayed release (DR/EC) 81 mg PO DAILY RF: 0 bisoprolol fumarate 5 MG tablet 5 mg PO DAILY RF: 0 lorazepam 1 MG tablet 1 mg PO BEDTIME RF: 0 losartan [Cozaar] 100 MG tablet 100 mg PO DAILY RF: 0 ezetimibe [Zetia] 10 MG tablet 10 mg PO DAILY RF: 0 albuterol sulfate [ProAir HFA] 200 PUFF/8.5 GM HFA aerosol inhaler 2 puff inhalation Q6H PRN (Reason: Cough) Qty: 1 RF: 0 ondansetron HCl [Zofran] 4 mg tablet 4 mg PO Q8H PRN (Reason: nausea and vomiting) Qty: 14 RF: 0 ED Provider: SCOTT DURAN Condition: Good
[2019-09-14] MEDS ORDERED: ROCEPHIN 1 GM/50 ML D5W 1 GM/50 ML BAG IV STA ×2 (14:52→16:48)
[2019-09-14] MEDS: SODIUM CHLORIDE 1,000 ML IV SCH (16:04)
[2019-09-14 16:33] VITALS: BMI 31.1
[2019-09-14] MEDS ORDERED: ZOFRAN 4 MG/2 ML IVP PRN (16:49)
[2019-09-14] MEDS ORDERED: PHENERGAN 25 MG/ML VIAL ONE (17:22)
[2019-09-14] MEDS: PHENERGAN 25 MG/ML VIAL 25 MG in SODIUM CHLORIDE 50 ML IV PRN (17:27)
[2019-09-14] MEDS: TORADOL IVP PRN (17:36)
[2019-09-14] MEDS: NORCO 5-325 PO SCH (21:04)
[2019-09-14] MEDS: ATIVAN PO SCH (21:04)
[2019-09-15] MEDS: SODIUM CHLORIDE 1,000 ML IV SCH (06:19)
[2019-09-15] MEDS: COZAAR PO SCH (08:16)
[2019-09-15] MEDS: ROCEPHIN 1 GM/50 ML D5W 1 GM/50 ML BAG IV SCH (08:16)
[2019-09-15] MEDS: ZEBETA PO SCH (08:16)
[2019-09-15] MEDS: ZETIA PO SCH (08:16)
[2019-09-15] MEDS: ASPIRIN EC PO SCH (08:16)
[2019-09-15] MEDS: TORADOL IVP PRN (13:25)
[2019-09-15] MEDS ORDERED: PHENERGAN 25 MG/ML VIAL ONE (13:28)
[2019-09-15] MEDS: PHENERGAN 25 MG/ML VIAL 25 MG in SODIUM CHLORIDE 50 ML IV PRN (13:28)
[2019-09-15] MEDS: ATIVAN PO SCH (20:20)
[2019-09-15] MEDS: NORCO 5-325 PO SCH (20:21)
[2019-09-16] MEDS: SODIUM CHLORIDE 1,000 ML IV SCH ×4 (01:13→13:23)
[2019-09-16] MEDS: ZETIA PO SCH (09:44)
[2019-09-16] MEDS: ASPIRIN EC PO SCH (09:44)
[2019-09-16] MEDS: ROCEPHIN 1 GM/50 ML D5W 1 GM/50 ML BAG IV SCH (09:44)
[2019-09-16] MEDS: ZEBETA PO SCH (09:45)
[2019-09-16] MEDS: COZAAR PO SCH (09:45)
[2019-09-16] MEDS ORDERED: PHENERGAN 25 MG/ML VIAL ONE (17:34)
[2019-09-16] MEDS: PHENERGAN 25 MG/ML VIAL 25 MG in SODIUM CHLORIDE 50 ML IV PRN (17:36)
[2019-09-16] MEDS: NORCO 5-325 PO SCH (20:32)
[2019-09-16] MEDS: ATIVAN PO SCH (20:32)
[2019-09-17] MEDS: ASPIRIN EC PO SCH (08:51)
[2019-09-17] MEDS: COZAAR PO SCH (08:54)
[2019-09-17] MEDS: ZEBETA PO SCH (08:55)
[2019-09-17] MEDS: ZETIA PO SCH (08:56)
--- NOTE | 2019-09-17 08:57 | DS ---
DATE OF SERVICE: 09/17/19 FINAL DIAGNOSIS: 1. ACUTE GASTROENTERITIS 2. HYPERTENSION 3. DYSLIPIDEMIA 4. CAD WITH STENT APPLICATION, [address] 6. LEFT NEPHROLITHIASIS, NON OBSTRUCTING PER CT 7. HYSTERECTOMY 8. CATARACT EXTRACTION, 2014 9. HEART CATH LAST VITALS Temp Pulse Resp BP Pulse Ox 97.7 F 59 L 18 147/69 H 97 09/17/19 05:11 09/17/19 05:11 09/17/19 05:11 09/17/19 05:11 09/17/19 05:11 DISCHARGE INSTRUCTIONS: AN APPOINTMENT IS SCHEDULED WITH DR. العلي/THAD YU APRN ON August AT 11 AM MEDICATIONS AT DISCHARGE: Hydrocodone Bitart/Acetaminophen ([place] 5-325) 1 tab PO BEDTIME [facility] Last Admin: 09/16/19 20:32 Dose: 1 tab Documented by: Albuterol Sulfate (Proair Hfa) 2 puff IH Q6H PRN PRN Reason: Bronchospasm Aspirin (Aspirin Ec) 81 mg PO DAILYWM [facility] Last Admin: 09/17/19 08:51 Dose: 81 mg Documented by: Bisoprolol Fumarate (Zebeta) 5 mg PO DAILY [facility] Last Admin: 09/17/19 08:55 Dose: 5 mg Documented by: Ezetimibe (Zetia) 10 mg PO DAILY [facility] Last Admin: 09/17/19 08:56 Dose: 10 mg Documented by: [place] 3-dha-spa fish oil (Fish Oil) 2 caps daily Last Admin: Lorazepam (Ativan) 1 mg PO BEDTIME [facility] Last Admin: 09/16/19 20:32 Dose: 1 mg Documented by: Losartan Potassium (Cozaar) 100 mg PO DAILY [facility] Last Admin: 09/17/19 08:54 Dose: 100 mg Documented by: NEW PRESCRIPTIONS: NONE DISCONTINUED MEDICATIONS: NONE DIET INSTRUCTIONS: REGULAR TOLERATED ACTIVITY: GRADUALLY RESUME TOLERATED SMOKING: NOT APPLICABLE DISEASE SPECIFIC EDUCATION: GASTROENTERITIS NUTRITION APPOINTMENT HOSPITAL COURSE: This 79 year old /WHITE F was hospitalized 09/14/19 with acute gastroenteritis. The patient had fever for 2 to 3 days. Urine mildly abnormal so Rocephin was given three times. The main problem was nausea, vomiting, and diarrhea. For the past 36 hours the patient has had no nausea, vomiting or diarrhea. The patient's appetite has improved. She was treated symptomatically with Zofran, Phenergan and IV fluids. Condition improved. She is up and about. Normal appetite. The patient is going to be discharged today in stable condition. No evidence of fluid overload. Cardiovascular status is stable. TIME SPENT: More than 60 minutes. MTDD
--- NOTE | 2019-09-17 09:10 | PCM.PROG ---
Attending Provider: ATTENDING PROVIDER: Dr. ALICE العلي DATE OF SERVICE: 09/17/19 - DISCHARGE NOTE SUBJECTIVE: This 79 year old /WHITE F was hospitalized 09/14/19 with acute gastroenteritis. The patient is going to be discharged in stable condition. No evidence of fluid overload. Cardiovascular status is stable. The patient's condition has resolved. REVIEW OF SYSTEMS: CONSTITUTIONAL: No night sweats. No fatigue, malaise, lethargy. No fever or chills. HEENT: Eyes: No visual changes. No eye pain. No eye discharge. ENT: No runny nose. No epistaxis. No sinus pain. No odynophagia. No congestion. RESPIRATORY: No cough, no congestion. No hemoptysis. No shortness of breath. CARDIOVASCULAR: No angina symptoms. No CHF symptoms. No atypical chest pain for CAD. No palpitations. No orthopnea.. GASTROINTESTINAL: No abdominal pain. No nausea or vomiting. No diarrhea or c onstipation. No hematemesis. No hematochezia. GENITOURINARY: No urgency. No frequency. No dysuria. No hematuria. No obstructive symptoms. No discharge. No pain. No significant abnormal bleeding. MUSCULOSKELETAL: No musculoskeletal pain; no joint swelling. NEUROLOGICAL: Awake, alert, oriented to time, place and person. No headache. No neck pain. No syncope. No seizures. No dizziness. PSYCHIATRIC: Not anxious. No depression. No suicidal thoughts. No homicidal thoughts. SKIN: No rash. No lesions. No wounds. ENDOCRINE: No unexplained weight loss. No weight gain. HEMATOLOGIC/LYMPHATIC: No anemia. No purpura. No petechiae. No prolonged or excessive bleeding. No palpable lymph nodes. PHYSICAL EXAMINATION: GENERAL: The patient is awake, alert and oriented, lying/sitting in bed in no distress. VITAL SIGNS: Temperature 97.7 F, Pulse 59, Respiratory Rate 18, BP 147/69, Pulse Ox 97% HEENT: Head normocephalic, atraumatic. Eyes: Extraocular muscles are intact. Pupils are equal, round and reactive to light and accommodation. Ears: No lesions. Nose appeared normal. Throat: No exudate or erythema. NECK: Supple. No JVD, no carotid bruit. No lymphadenopathy or thyromegaly. LUNGS: Clear to auscultation. Percussion note normal. Chest symmetrical. HEART: S1, S2, no S3. No murmurs. No cyanosis or clubbing. No ascites. Pulses: Dorsalis pedis and posterior tibial pulses +1 to +2 both sides. ABDOMEN: Soft. Non-tender. Bowel sounds active. No CVA tenderness. No mass felt. EXTREMITIES: No edema. Full range of motion of all extremities, equal. NEUROLOGIC: No focal deficit. Cranial nerves II through XII are grossly intact. No headache, no double vision or headache. SKIN: Warm and dry. Intact. Turgor-normal. LYMPHATIC: No palpable lymph nodes/no lymphedema. MUSCULOSKELETAL: Normal joints with no swelling. Muscle tone is normal. LAB REVIEW: 09/17/19 04:48 09/17/19 04:48 09/17/19 04:48: Sodium 139.1, Potassium 3.65, Chloride 109.2 H, Carbon Dioxide 24.1, Anion Gap 9.45, BUN 10.7, Creatinine 0.61, Estimated GFR (MDRD) 94.00, BUN/Creatinine Ratio 17.54, Glucose 97.6, Calcium 8.54, Total Bilirubin 0.61, AST 27.5, ALT 17.8, Alkaline Phosphatase 52.0 L, Total Protein 6.03 L, Albumin 3.43 L, Globulin 2.60, Albumin/Globulin Ratio 1.31 09/17/19 04:48: WBC 5.31, RBC 4.23, Hgb 13.1, Hct 39.4, MCV 93.1, MCH 31.0, MCHC 33.2, RDW Coeff of Olive 12.6, Plt Count 142, Immature Gran % (Auto) 0.2, Neut % (Auto) 56.6, Lymph % (Auto) 28.6, Heard % (Auto) 10.4 H, Eos % (Auto) 3.4, Baso % (Auto) 0.8, Immature Gran # (Auto) 0.0, Neut # (Auto) 3.0, Lymph # (Auto) 1.5, Heard # (Auto) 0.6, Eos # (Auto) 0.2, Baso # (Auto) 0.0 ASSESSMENT: Please see below. 1. Acute gastroenteritis resolved. 2. Skin turgor is a lot better. 3 Creatinine 0.61, BUN 10.7, potassium 3.65. PLAN: 1. Discharge to home. 2. Will be seen in followup in 7 days. 3. Advised to continue the same medication as before. Plan and coordination of the patient's care discussed in the presence of Commercial Loan Officer and nurse. CONDITION: Stable SCRIBED BY: RG HENRIQUEZ [employer] Rol[employer] Machine scribed while in presence of service performed by Dr. ALICE العلي on 09/17/19 ([id number])
--- NOTE | 2019-09-17 09:12 | PN ---
BILLING 09/14/19 ADMISSION DAY LEVEL 5 09/15/19 INTERMEDIATE 09/16/19 INTERMEDIATE 09/17/19 DISCHARGE MTDD
[2019-09-17 09:27] VITALS: BP 149/75; TEMP 97.5
--- NOTE | 2019-09-17 09:58 | CM.DICTOOL ---
ADMISSION: 09/14/19 15:14 DISCHARGE: SEPTEMBER 17, 2019 DATE OF SERVICE: 09/17/19 FINAL DIAGNOSIS ACUTE GASTROENTERITIS HYPERTENSION DYSLIPIDEMIA CAD WITH STENT APPLICATION, [address] LEFT NEPHROLITHIASIS, NON OBSTRUCTING PER CT HYSTERECTOMY CATARACT EXTRACTION, 2014 HEART CATH LAST VITALS Temp Pulse Resp BP Pulse Ox 97.7 F 59 L 18 147/69 H 97 09/17/19 05:11 09/17/19 05:11 09/17/19 05:11 09/17/19 05:11 09/17/19 05:11 TAKE THESE MEDICATIONS AT HOME Hydrocodone Bitart/Acetaminophen ([place] 5-325) 1 tab PO BEDTIME [facility] Last Admin: 09/16/19 20:32 Dose: 1 tab Documented by: Albuterol Sulfate (Proair Hfa) 2 puff IH Q6H PRN PRN Reason: Bronchospasm Aspirin (Aspirin Ec) 81 mg PO DAILYWM [facility] Last Admin: 09/17/19 08:51 Dose: 81 mg Documented by: Bisoprolol Fumarate (Zebeta) 5 mg PO DAILY [facility] Last Admin: 09/17/19 08:55 Dose: 5 mg Documented by: Ezetimibe (Zetia) 10 mg PO DAILY [facility] Last Admin: 09/17/19 08:56 Dose: 10 mg Documented by: [place] 3-dha-spa fish oil (Fish Oil) 2 caps daily Last Admin: Lorazepam (Ativan) 1 mg PO BEDTIME [facility] Last Admin: 09/16/19 20:32 Dose: 1 mg Documented by: Losartan Potassium (Cozaar) 100 mg PO DAILY [facility] Last Admin: 09/17/19 08:54 Dose: 100 mg Documented by: ALLERGIES azithromycin [From Zithromax Z-Avtar] Allergy (Mild, Verified 09/14/19 12:42) DISCONTINUED MEDICATIONS NONE NEW PRESCRIPTIONS: NONE SMOKING: NOT APPLICABLE DISEASE SPECIFIC EDUCATION: GASTROENTERITIS NUTRITION APPOINTMENT LAB REVIEW: 09/17/19 04:48 09/17/19 04:48 09/17/19 04:48: Sodium 139.1, Potassium 3.65, Chloride 109.2 H, Carbon Dioxide 24.1, Anion Gap 9.45, BUN 10.7, Creatinine 0.61, Estimated GFR (MDRD) 94.00, BUN/Creatinine Ratio 17.54, Glucose 97.6, Calcium 8.54, Total Bilirubin 0.61, AST 27.5, ALT 17.8, Alkaline Phosphatase 52.0 L, Total Protein 6.03 L, Albumin 3.43 L, Globulin 2.60, Albumin/Globulin Ratio 1.31 09/17/19 04:48: WBC 5.31, RBC 4.23, Hgb 13.1, Hct 39.4, MCV 93.1, MCH 31.0, MCHC 33.2, RDW Coeff of Olive 12.6, Plt Count 142, Immature Gran % (Auto) 0.2, Neut % (Auto) 56.6, Lymph % (Auto) 28.6, [place] % (Auto) 10.4 H, Eos % (Auto) 3.4, Baso % (Auto) 0.8, Immature Gran # (Auto) 0.0, Neut # (Auto) 3.0, Lymph # (Auto) 1.5, [place] # (Auto) 0.6, Eos # (Auto) 0.2, Baso # (Auto) 0.0 PLAN: DISCHARGE HOME DIET: REGULAR TOLERATED ACTIVITY: GRADUALLY RESUME TOLERATED AN APPOINTMENT IS SCHEDULED WITH DR. العلي/THAD YU APRN ON August AT 11 AM CODE STATUS: DNR MRS. HOOVER IS ALERT AND ORIENTED X 3. MRS. HOOVER LIVES AT HOME WITH HER . SHE IS AGREEABLE TO PLANS FOR DISCHARGE TODAY. SHE IS INDEPENDENT WITH ADL'S. SHE IS TOLERATING A SOLID DIET AND HAS A GOOD APPETITE OF 50-100%. SHE DENIES NAUSEA OR ABDOMINAL PAIN. SHE IS INDEPENDENT WITH TRANSFERS AND IS AMBULATORY IN THE ROOM AND HALLWAY. MRS. HOOVER IS CONTINENT OF BOWEL AND BLADDER. SKIN IS INTACT AND FREE OF SKIN BREAKDOWN. MD THAD TONEY APRN
--- NOTE | 2019-09-18 11:14 | HP ---
DATE OF SERVICE: 09/14/19 REASON FOR HOSPITALIZATION The patient was hospitalized with acute gastroenteritis type of symptoms that started yesterday that is 24 hours ago. HISTORY OF PRESENT ILLNESS: Judit Sorensen was seen in the emergency room today with nausea and vomiting and fever. The patient had emergency room visit last night and she stayed in the emergency room until 3:30am and was discharged and has been running fever of 102. It all started after the patient had baked potato, sauerkraut at [employer]. The patient has been vomiting since then. Vomited at least 6-8 times in the hospital emergency room along with home before she came to the first time to the emergency room. Second time the patient has come to the emergency room because she was unable to eat with fever and continuous nausea with some diarrhea and vomiting. PAST MEDICAL HISTORY/PAST SURGICAL HISTORY: Coronary artery disease Hypertension Dyslipidemia, the patient hasn't been able to take her cholesterol medication. REVIEW OF SYSTEMS: CONSTITUTIONAL: No night sweats. No fever or chills. Fatigued and weakness. HEENT: Eyes: No visual changes. No eye pain. No eye discharge. ENT: No runny nose. No epistaxis. No sinus pain. No sore throat. No odynophagia. No ear pain. No congestion. RESPIRATORY: No cough, no congestion. No hemoptysis. No shortness of breath. CARDIOVASCULAR: No angina symptoms. No CHF symptoms. No atypical chest pain for CAD. No palpitations. No PND. No orthopnea. GASTROINTESTINAL: No abdominal pain. Continuous Nausea. No vomiting for past couple of hours . Diarrhea has stopped. No abdominal cramps. No hematemesis. No hematochezia. No appetite. GENITOURINARY: No urgency. No frequency. No dysuria. No hematuria. No obstructive symptoms. No discharge. No pain. No significant abnormal bleeding. MUSCULOSKELETAL: No musculoskeletal pain. No joint swelling. No arthritis. NEUROLOGICAL: No headache. No neck pain. No syncope. No seizures. No dizziness. PSYCHIATRIC: Not anxious. No depression. No suicidal thoughts. No homicidal thoughts. SKIN: No rash. No lesions. No wounds. ENDOCRINE: No unexplained weight loss. No weight gain. HEMATOLOGIC/LYMPHATIC: No anemia. No purpura. No petechiae. No prolonged or excessive bleeding. No palpable lymph nodes. PERSONAL/FAMILY/SOCIAL HISTORY: The patient is and lives with the . Nonsmoker and no alcohol abuse. 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 She does all activity of daily living. She is taking care of the who is practically demented and disabled. MEDICATIONS: The patient is on antihypertensive pills. Unable to take any Cholesterol medication. Lorazepam 1mg PO bedtime Bisoprolol Fumarate 5mg PO daily Ecotrin 81mg PO daily Cozaar 100mg PO daily Zetia 10mg PO daily Hydrocodone-Acetaminophen 5-325mg PO bedtime Proair HFA two puffs Q 6 hours PRN Fish oil 1,000mg two capsules PO daily ALLERGIES: Azithromycin PHYSICAL EXAMINATION: GENERAL: The patient is ,oriented to time, place and person. VITAL SIGNS: Temperature 99.7, pulse 70, respiratory rate 15, blood pressure 138/74, oxygen saturation 97% on room air. HEENT: Head normocephalic, atraumatic. Eyes: Extraocular muscles are intact. Pupils are equal, round and reactive to light and accommodation. Ears: No lesions. Nose appeared normal. Throat: No exudate or erythema. NECK: Supple. No JVD, no carotid bruit. No lymphadenopathy or thyromegaly. LUNGS:Decreased breath sounds but clear to auscultation. Percussion note normal. Chest symmetrical. HEART: S1, S2, no S3. No murmur. No cyanosis or clubbing. No ascites. Pulses: Dorsalis pedis and posterior tibial pulses +1 bilaterally. ABDOMEN: Soft. Nontender. Bowel sounds hyperactive. No CVA tenderness. No mass felt. EXTREMITIES: No edema. Full range of motion of all extremities, equal. NEUROLOGIC: No focal deficit. Cranial nerves II through XII are grossly intact. No headache, no double vision or headache. SKIN: Dry. Intact. Turgor - normal. Mucus membrane is dry. No rash LYMPHATIC: No palpable lymph nodes/no lymphedema. MUSCULOSKELETAL: Normal joints with no swelling. Muscle tone is normal. LABS: CT scan of the abdomen showed diverticulitis, no acute findings. Chest x-ray is negative. EKG is sinus rhythm. No acute changes. Telemetry not arrhythmias. WBC normal some shift to the left with normal WBC. ASSESSMENT: 1. Acute gastroenteritis with evidence of dehydration The patient is EGFR of close to 60 cc per minute. 2. History of coronary artery disease 3. Hypertension 4. Dyslipidemia PLAN: 1. Given IV fluids 2. Watch for fluid overload 3. Telemetry monitoring 4. Monitor the oximetry 5. Phenergan to be given because Zofran didn't work for nausea 6. The patient is to be given food as tolerated. CONDITION: Stable. TIME SPENT: More than 70 minutes. MTDD
--- NOTE | 2019-09-18 12:58 | PN ---
DATE OF SERVICE: 09/15/19 SUBJECTIVE: 79 year old white female hospitalized with acute gastroenteritis. The patient is feeling a lot better. Mild nausea still present but eating the food now. She is going to be on soft diet. REVIEW OF SYSTEMS: CONSTITUTIONAL: No night sweats. No fatigue, malaise, lethargy. No fever or chills. HEENT: Eyes: No visual changes. No eye pain. No eye discharge. ENT: No runny nose. No epistaxis. No sinus pain. No sore throat. No odynophagia. No congestion. RESPIRATORY: No cough, no congestion. No hemoptysis. No shortness of breath. CARDIOVASCULAR: No angina symptoms. No CHF symptoms. No atypical chest pain for CAD. No palpitations. No PND. No orthopnea. GASTROINTESTINAL: No abdominal pain. Mild Nausea. No vomiting. No diarrhea or constipation. No hematemesis. No hematochezia. Some loose liquidy brown bowel movements a couple of times. GENITOURINARY: No urgency. No frequency. No dysuria. No hematuria. No obstructive symptoms. No discharge. No pain. No significant abnormal bleeding. MUSCULOSKELETAL: No musculoskeletal pain; no joint swelling. NEUROLOGICAL: No headache. No neck pain. No syncope. No seizures. No dizziness. PSYCHIATRIC: Not anxious. No depression. No suicidal thoughts. No homicidal thoughts. SKIN: No rash. No lesions. No wounds. ENDOCRINE: No unexplained weight loss. No weight gain. HEMATOLOGIC/LYMPHATIC: No anemia. No purpura. No petechiae. No prolonged or excessive bleeding. No palpable lymph nodes. PHYSICAL EXAMINATION: VITAL SIGNS: Temperature 98.9, pulse 63, respiratory rate 20, blood pressure 125/62 and pulse ox 95%. HEENT: Head normocephalic, atraumatic. Eyes: Extraocular muscles are intact. Pupils are equal, round and reactive to light and accommodation. Ears: No lesions. Nose appeared normal. Throat: No exudate or erythema. NECK: Supple. No JVD, no carotid bruit. No lymphadenopathy or thyromegaly. LUNGS: Decreased breath sounds but clear to auscultation. Percussion note normal. Chest symmetrical. HEART: S1, S2, no S3. No murmurs. No cyanosis or clubbing. No ascites. Pulses: Dorsalis pedis and posterior tibial pulses +1 to +2 bilaterally. ABDOMEN: Soft. Nontender. Bowel sounds active. No CVA tenderness. No mass felt. EXTREMITIES: No edema. Full range of motion of all extremities, equal. NEUROLOGIC: No focal deficit. Cranial nerves II through XII are grossly intact. No headache, no double vision or headache. SKIN: Not dry. Intact. Turgor - Better. Hydration status seems to have improved. LYMPHATIC: No palpable lymph nodes/no lymphedema. MUSCULOSKELETAL: Normal joints with no swelling. Muscle tone is normal. LABS: Hgb 13, hct 40, WBC 7,000 normal differentia, creatinine 0.7, BUN 21, potassium 3.9 ASSESSMENT: 1. Acute gastroenteritis, seems to be resolving 2. Coronary artery disease with stent, stable 3. Hypertension PLAN: 1. Continue IV antibiotic Rocephin for possibility of UTI which I noted 2. Continue IV fluids at 50cc CARDIOVASCULAR STATUS: Stable with no evidence of fluid overload. CONDITION: Stable TIME SPENT: More than 30 minutes. Plan and coordination of the patient's care discussed in the presence of nurse. TASHA
--- NOTE | 2019-09-18 13:29 | PN ---
DATE OF SERVICE: 09/16/19 SUBJECTIVE: 79 year old white female hospitalized with acute gastroenteritis. The patient's condition has improved. She doesn't have any nausea or vomiting anymore. Appetite has improved. REVIEW OF SYSTEMS: CONSTITUTIONAL: No night sweats. No fatigue, malaise, lethargy. No fever or chills. Mild weakness. HEENT: Eyes: No visual changes. No eye pain. No eye discharge. ENT: No runny nose. No epistaxis. No sinus pain. No sore throat. No odynophagia. No congestion. RESPIRATORY: No cough, no congestion. No hemoptysis. No shortness of breath. CARDIOVASCULAR: No angina symptoms. No CHF symptoms. No atypical chest pain for CAD. No palpitations. No PND. No orthopnea. GASTROINTESTINAL: No abdominal pain. No nausea or vomiting. No diarrhea or constipation. No hematemesis. No hematochezia. GENITOURINARY: No urgency. No frequency. No dysuria. No hematuria. No obstructive symptoms. No discharge. No pain. No significant abnormal bleeding. MUSCULOSKELETAL: No musculoskeletal pain; no joint swelling. NEUROLOGICAL: No headache. No neck pain. No syncope. No seizures. No dizziness. PSYCHIATRIC: Not anxious. No depression. No suicidal thoughts. No homicidal thoughts. SKIN: No rash. No lesions. No wounds. ENDOCRINE: No unexplained weight loss. No weight gain. HEMATOLOGIC/LYMPHATIC: No anemia. No purpura. No petechiae. No prolonged or excessive bleeding. No palpable lymph nodes. PHYSICAL EXAMINATION: VITAL SIGNS: Temperature 97.7, pulse 74, respiratory rate 19, blood pressure 135/67 and pulse ox 93%. HEENT: Head normocephalic, atraumatic. Eyes: Extraocular muscles are intact. Pupils are equal, round and reactive to light and accommodation. Ears: No lesions. Nose appeared normal. Throat: No exudate or erythema. NECK: Supple. No JVD, no carotid bruit. No lymphadenopathy or thyromegaly. LUNGS: Clear to auscultation. Percussion note normal. Chest symmetrical. HEART: S1, S2, no S3. No murmurs. No cyanosis or clubbing. No ascites. Pulses: Dorsalis pedis and posterior tibial pulses +1 to +2 bilaterally. ABDOMEN: Soft. Nontender. Bowel sounds active. No CVA tenderness. No mass felt. EXTREMITIES: No edema. Full range of motion of all extremities, equal. NEUROLOGIC: No focal deficit. Cranial nerves II through XII are grossly intact. No headache, no double vision or headache. SKIN: Not dry. Intact. Turgor - normal. LYMPHATIC: No palpable lymph nodes/no lymphedema. MUSCULOSKELETAL: Normal joints with no swelling. Muscle tone is normal. LABS: Hgb 12.8, hct 38, WBC 5,800 normal differential, creatinine 0.6, BUN 14, potassium 3.6. ASSESSMENT: 1. Acute gastroenteritis with dehydration seems to have resolved PLAN: 1. Discontinue IV fluids after the present bag is over 2. Discontinue Rocephin. Rocephin was used for a total of 3 doses because of possibility of urinary tract infection which I don't think was the patient's problem. The patient has no symptoms. 3. Cardiovascular status is stable with no evidence of fluid overload, CHF or CAD. TIME SPENT: More than 30 minutes. Plan and coordination of the patient's care discussed in the presence of nurse. TASHA
== END 2019-09-17 10:45 | disposition home or self-care (01) | DRG 392 ==
LOC: ED 12:34 → MEDSURG B 15:14
PROVIDERS: ADMIT Internal Medicine; ATTEND Internal Medicine
DX: K52.9 Noninfective gastroenteritis and colitis, unspecified; E78.5 Hyperlipidemia, unspecified; R50.9 Fever, unspecified; R10.84 Generalized abdominal pain; R11.2 Nausea with vomiting, unspecified; R53.1 Weakness; R53.81 Other malaise; R63.0 Anorexia; I25.10 Atherosclerotic heart disease of native coronary artery without angina pectoris; I10 Essential (primary) hypertension; E86.0 Dehydration; R05 Cough

== ENCOUNTER 2021-08-30 00:32 | Inpatient (IN) ==
[2021-08-30] MEDS ORDERED: SODIUM CHLORIDE 1,000 ML IV STA ×2 (00:53→02:02)
[2021-08-30] MEDS ORDERED: ZOFRAN 4 MG/2 ML IVP STA (00:53)
--- NOTE | 2021-08-30 01:02 | ED.PDOC ---
General ED Provider: Dr. VANNESA MONTES DE OCA Chief Complaint: Weakness Stated Complaint: Patient states that she has been here several times this week with two negative covid test. Returns with nausea and weakness. States does not like the taste of zofran odt did not know she could swallow it Time Seen by Provider: 08/30/21 00:47 Mode of Arrival: Ambulance Information Source: Patient Primary Care Provider: ALICE العلي Nursing and Triage Documentation Reviewed and Agree: Yes Does patient meet sepsis criteria?: No System Inflammatory Response Syndrome: Not Applicable Sepsis Protocol: For patient's 13 years and over: Temp is 96.8 and below OR 101 and greater Pulse >90 BPM Resp >20/minute Acutely Altered Mental Status Are patient's symptoms suggestive of a new infection, such as: -Pneumonia -Skin, Soft Tissue -Endocarditis -UTI -Bone, Joint Infection -Implantable Device -Acute Abdominal Infection -Wound Infection -Meningitis -Blood Stream Catheter Infection -Unknown Review of Systems Review Of Systems Constitutional: Reports Weakness Respiratory: Reports No symptoms Cardiac: Reports No symptoms GI: Reports Nausea : Reports No symptoms Musculoskeletal: Reports No symptoms Skin: Reports No symptoms Neurological: Reports Anxiety All Other Systems: Reviewed and Negative [facility] Medical History (Updated 08/30/21 @ 06:32 by VANNESA MONTES DE OCA MD) Coronary artery arteriosclerosis Hypertension Family History (Updated 09/14/19 @ 16:43 by MARCELINO TURNER RN) BROTHER Coronary artery arteriosclerosis FATHER Coronary artery arteriosclerosis Surgical History (Updated 06/09/20 @ 09:03 [facility] History of appendectomy History of hysterectomy Female Reproductive History Menstrual Hx Hysterectomy: Yes Hx Tubal Ligation: No Physical Exam Physical Exam Appearance: Reports Well-appearing Ill-appearing: None Pain Distress: None Eyes: Reports LILIANA and EOMI ENT: Reports Ears normal and Nose normal Neck: Supple Respiratory: Reports Airway patent, Breath sounds clear and Breath sounds equal Cardiovascular: Reports RRR, Pulses normal and No rub GI/: Reports Soft, Nontender and No masses Musculoskeletal: Reports Normal strength, ROM intact and No edema Skin: Reports Warm, Dry and Normal color Neurological: Reports Sensation intact, Motor intact, Alert and Oriented Psychiatric: Reports Anxious Re-Evaluation Re-Evaluation Time of Re-Evaluation: 06:44 Status: Improved (but still feels weak ) Vital Signs Stable: Yes Physician Notification Case Discussed Physician Notified: Dr العلي Time of Notification: 06:31 (ok to admit to telemetry, check TSH and pannel. Start antibiotics for UTI.) Critical Care Note Critical Care Note Total Critical Care Time (mins): 0 Course Course Hematology/Chemistry: 08/30/21 03:00 08/30/21 03:00 Orders, Labs, Meds: Lab Review 08/30/21 08/30/21 08/30/21 00:54 02:32 03:00 WBC 7.46 RBC 4.29 Hgb 13.5 Hct 40.4 MCV 94.2 MCH 31.5 H MCHC 33.4 RDW Coeff of Olive 12.7 Plt Count 196 Immature Gran % (Auto) 0.1 Neut % (Auto) 86.2 H Lymph % (Auto) 9.1 L Hill % (Auto) 3.4 Eos % (Auto) 0.1 Baso % (Auto) 1.1 Neut # (Auto) 6.4 Lymph # (Auto) 0.7 Hill # (Auto) 0.3 L Eos # (Auto) 0.0 Baso # (Auto) 0.1 Immature Gran # (Auto) 0.0 Puncture Site R rad Base Excess -6.2 L O2 Saturation 92.4 L ABG pH 7.40 ABG pCO2 30.0 L ABG pO2 65.0 L ABG HCO3 18.6 L ABG Total CO2 19.5 Apollo Test Yes Hemoglobin 1.5 Oxyhemoglobin 93.0 L Carboxyhemoglobin 1.9 H Total Hemoglobin 13.4 FiO2 % 21.0 Sodium Potassium Chloride Carbon Dioxide Anion Gap BUN Creatinine Estimated GFR (MDRD) BUN/Creatinine Ratio Glucose Calcium Total Bilirubin AST ALT Alkaline Phosphatase Total Protein Albumin Globulin Albumin/Globulin Ratio Procalcitonin Urine Color Urine Clarity Urine pH Ur Specific Newn[place] Urine Protein Urine Glucose (UA) Urine Ketones Urine Blood Urine Nitrite Urine Bilirubin Urine Urobilinogen Ur Leukocyte Esterase Urine Microscopic RBC Urine Microscopic WBC Ur Squamous Epith Cells Ur Renal Epithelial Cell Urine Bacteria Urine Starch Urine Mucus Adenovirus (PCR) Not detected B. pertussis DNA (PCR) Not detected B.parapertussis DNA PCR Not detected C. pneumoniae DNA (PCR) Not detected Coronavirus OC43 (PCR) Not detected Coronavirus HKU1 (PCR) Not detected Coronavirus 229E (PCR) Not detected Coronavirus NL63 (PCR) Not detected Human Metapneumovir PCR Not detected Influenza Type A (PCR) Not detected Influenza B (RT-PCR) Not detected M. pneumoniae (PCR) Not detected Parainfluenza 1 (PCR) Not detected Parainfluenza 2 (PCR) Not detected Parainfluenza 3 (PCR) Not detected Parainfluenza 4 (PCR) Not detected RSV (PCR) Not detected Entero/Rhino (PCR) Not detected SARS-CoV-2 (PCR) Not detected 08/30/21 08/30/21 08/30/21 03:00 03:00 05:31 WBC RBC Hgb Hct MCV MCH MCHC RDW Coeff of Olive Plt Count Immature Gran % (Auto) Neut % (Auto) Lymph % (Auto) Hill % (Auto) Eos % (Auto) Baso % (Auto) Neut # (Auto) Lymph # (Auto) Hill # (Auto) Eos # (Auto) Baso # (Auto) Immature Gran # (Auto) Puncture Site Base Excess O2 Saturation ABG pH ABG pCO2 ABG pO2 ABG HCO3 ABG Total CO2 Apollo Test Hemoglobin Oxyhemoglobin Carboxyhemoglobin Total Hemoglobin FiO2 % Sodium 138.0 Potassium 4.18 Chloride 108.0 H Carbon Dioxide 20.2 L Anion Gap 13.98 BUN 18.4 H Creatinine 0.83 Estimated GFR (MDRD) 66.00 BUN/Creatinine Ratio 22.16 Glucose 109.1 H Calcium 8.15 L Total Bilirubin 0.51 AST 16.0 ALT 8.3 Alkaline Phosphatase 57.5 Total Protein 5.90 L Albumin 3.80 Globulin 2.10 Albumin/Globulin Ratio 1.80 Procalcitonin < 0.05 Urine Color Yellow Urine Clarity Clear Urine pH 5.5 Ur Specific [place] >=1.030 Urine Protein Negative Urine Glucose (UA) Negative Urine Ketones 3+ H Urine Blood 1+ H Urine Nitrite Negative Urine Bilirubin 1+ H Urine Urobilinogen 0.2 Ur Leukocyte Esterase Trace H Urine Microscopic RBC 5-10 Urine Microscopic WBC 30-50 Ur Squamous Epith Cells 10-20 Ur Renal Epithelial Cell 2-5 Urine Bacteria 1+ Urine Starch Trace Urine Mucus 2+ Adenovirus (PCR) B. pertussis DNA (PCR) B.parapertussis DNA PCR C. pneumoniae DNA (PCR) Coronavirus OC43 (PCR) Coronavirus HKU1 (PCR) Coronavirus 229E (PCR) Coronavirus NL63 (PCR) Human Metapneumovir PCR Influenza Type A (PCR) Influenza B (RT-PCR) M. pneumoniae (PCR) Parainfluenza 1 (PCR) Parainfluenza 2 (PCR) Parainfluenza 3 (PCR) Parainfluenza 4 (PCR) RSV (PCR) Entero/Rhino (PCR) SARS-CoV-2 (PCR) Orders Category Date Time Status ADMIT PATIENT INPATIENT .TO [facility] (MONITORED BED) ADMISSION 08/30/21 06 :25 Active ABG DRAW REQUEST Stat CARDIO 08/30/21 00:53 Completed ACTIVITY .Up With Assistance CARE 08/30/21 06:25 Active INTAKE & OUTPUT Q8HR CARE 08/30/21 06:25 Active TELEMETRY MONITORING TELE CARE 08/30/21 06:29 Active VITAL SIGNS Q4HR CARE 08/30/21 06:26 Active CARDIAC DIET DIETARY 08/30/21 Breakfast Ordered ABG COOX Stat LAB 08/30/21 02:32 Completed BLOOD CULTURE (ED ONLY) Stat LAB 08/30/21 03:00 Received CBC W/ AUTO DIFF DAILY@0600 LAB 08/31/21 06:00 Ordered CBC W/ AUTO DIFF DAILY@0600 LAB 09/01/21 06:00 Ordered CBC W/ AUTO DIFF Stat LAB 08/30/21 03:00 Completed COMPREHENSIVE METABOLIC PANEL DAILY@0600 LAB 08/31/21 06:00 Ordered COMPREHENSIVE METABOLIC PANEL DAILY@0600 LAB 09/01/21 06:00 Ordered COMPREHENSIVE METABOLIC PANEL Stat LAB 08/30/21 03:00 Completed PROCALCITONIN Stat LAB 08/30/21 03:00 Completed RESPIRATORY PANEL 2.1 (PCR) Stat LAB 08/30/21 00:54 Completed THYROID PANEL WITH TSH Stat LAB 08/30/21 03:00 Received URINALYSIS C & S IF INDICATED Stat LAB 08/30/21 05:31 Completed URINE CULTURE Stat LAB 08/30/21 05:31 Received Acetaminophen [Tylenol] MEDS 08/30/21 06:25 Active 650 mg PO Q4H PRN Ceftriaxone/D5w 1 gm Premix [Rocephin 1 gm/50 ml D5w] MEDS 08/30/21 06:24 Active 1 gm in 50 ml IV ONCE Enoxaparin Sodium [Lovenox] MEDS 08/30/21 09:00 Active 40 mg SUBCUT DAILY Ondansetron HCl/Pf [Zofran 4 mg/2 ml] MEDS 08/30/21 00:53 Discontinued 4 mg IVP ONCE STA Ondansetron HCl/Pf [Zofran 4 mg/2 ml] MEDS 08/30/21 06:25 Active 4 mg IVP Q6H PRN Sodium Chloride 0.9% [Sodium Chloride] 1,000 ml MEDS 08/30/21 06:30 Active IV 75 mls/hr Sodium Chloride 0.9% [Sodium Chloride] 1,000 ml MEDS 08/30/21 00:53 Discontinued IV BOLUS Sodium Chloride 0.9% [Sodium Chloride] 1,000 ml MEDS 08/30/21 02:02 Discontinued IV BOLUS RESUSCITATION STATUS Routine OTHERS 08/30/21 06:25 Ordered CHEST, 1V AP ONLY Stat RADS 08/30/21 00:53 Completed PT CONSULT Routine THERAPIES 08/30/21 Ordered Medications Generic Name Dose Route Start Last Admin Trade Name Freq PRN Reason Stop Dose Admin Acetaminophen 650 mg 08/30/21 06:25 Acetaminophen 325 Mg Tablet PO Q4H PRN fever and mild pain Hydrocodone Bitart/Acetaminophen 1 tab 08/30/21 21:00 Hydrocodone Bit/Acetaminophen 5/325 Mg Tablet PO BEDTIME CHANTELLE Aspirin 81 mg 08/30/21 09:00 Aspirin 81 Mg Tablet.Dr PO DAILY [facility] Ezetimibe 10 mg 08/30/21 09:00 Ezetimibe 10 Mg Tablet PO DAILY [facility] Enoxaparin Sodium 40 mg 08/30/21 09:00 Enoxaparin Sodium 40 Mg/0.4 Ml Syr SUBCUT DAILY CHANTELLE CEFTRIAXONE/D5W 1 GM PREMIX 1 gm in 50 mls @ 75 mls/hr 08/30/21 06:24 08/30/21 06:33 Rocephin 1 Gm/50 Ml D5w IV 08/30/21 07:03 75 mls/hr ONCE STA Administration Sodium Chloride 1,000 mls @ 75 mls/hr 08/30/21 06:30 08/30/21 06:33 Sodium Chloride IV 75 mls/hr .[id number] CHANTELLE Administration Lorazepam 1 mg 08/30/21 21:00 Lorazepam 1 Mg Tablet PO BEDTIME CHANTELLE Losartan Potassium 100 mg 08/30/21 09:00 Losartan Potassium 100 Mg Tablet PO DAILY CHANTELLE Ondansetron HCl 4 mg 08/30/21 06:25 Ondansetron Hcl/Pf 4 Mg/2 Ml Sdv IVP Q6H PRN nausea Discontinued Medications Generic Name Dose Route Start Last Admin Trade Name Freq PRN Reason Stop Dose Admin Sodium Chloride 1,000 mls @ 1,000 mls/hr 08/30/21 00:53 08/30/21 01:47 Sodium Chloride IV 08/30/21 01:52 1,000 mls/hr BOLUS STA Administration Sodium Chloride 1,000 mls @ 1,000 mls/hr 08/30/21 02:02 08/30/21 02:04 Sodium Chloride IV 08/30/21 03:01 1,000 mls/hr BOLUS STA Administration Ondansetron HCl 4 mg 08/30/21 00:53 08/30/21 01:47 Ondansetron Hcl/Pf 4 Mg/2 Ml Sdv IVP 08/30/21 00:54 4 mg ONCE STA Administration Vital Signs: Temp Pulse Resp BP Pulse Ox 08/30/21 00:33 97.2 F L 88 16 144/62 H 95 Discharge Plan Discharge Patient Disposition: ADMITTED INPATIENT Discharge Problem: Bacterial UTI, Muscle weakness ED Provider: VANNESA MONTES DE OCA Condition: Fair Physician Progress Note: []
--- NOTE | 2021-08-30 02:27 | DI ---
EXAM: AP single view of the chest. HISTORY: Cough. Weakness. FINDINGS: The bones are unremarkable. The cardiac silhouette and pulmonary vasculature are within no rmal limits. The costophrenic angles are clear. There is minimal left basilar atelectasis and/or pn eumonia. There is eventration of the right hemidiaphragm. Impression: Left basilar atelectasis and/or pneumonia.
[2021-08-30 02:37] LABS: ADENOVIRUS (PCR) NOT DETECTED (NOT DETECT); BORDETELLA PARAPERTUSSIS (PCR) NOT DETECTED (NOT DETECT); BORDETELLA PERTUSSIS (PCR) NOT DETECTED (NOT DETECT); CHLAMYDIA PNEUMONIAE (PCR) NOT DETECTED (NOT DETECT); CORONAVIRUS 229E (PCR) NOT DETECTED (NOT DETECT); CORONAVIRUS HKU1 (PCR) NOT DETECTED (NOT DETECT); CORONAVIRUS NL63 (PCR) NOT DETECTED (NOT DETECT); CORONAVIRUS OC43 (PCR) NOT DETECTED (NOT DETECT); HUMAN METAPNEUMOVIRUS (PCR) NOT DETECTED (NOT DETECT); HUMAN RHINOVIRUS/ENTEROV (PCR) NOT DETECTED (NOT DETECT); INFLUENZA B (PCR) NOT DETECTED (NOT DETECT); MYCOPLASMA PNEUMONIAE (PCR) NOT DETECTED (NOT DETECT); PARAINFLUENZA VIRUS 1 (PCR) NOT DETECTED (NOT DETECT); PARAINFLUENZA VIRUS 2 (PCR) NOT DETECTED (NOT DETECT); PARAINFLUENZA VIRUS 3 (PCR) NOT DETECTED (NOT DETECT); PARAINFLUENZA VIRUS 4 (PCR) NOT DETECTED (NOT DETECT); RESPIRATORY SYNCYTIAL V (PCR) NOT DETECTED (NOT DETECT); SARS_COV_2 (PCR) NOT DETECTED (NOT DETECT)
[2021-08-30 03:05] LABS: BASOPHILS # (AUTO) 0.1 K/uL (0-0.2); BASOPHILS % (AUTO) 1.1 % (0.0-3.0); EOSINOPHILS % (AUTO) 0.1 % (0.0-7.0); HEMATOCRIT 40.4 % (37.0-47.0); HEMOGLOBIN 13.5 g/dl (12.0-16.0); IMMATURE GRANULOCYTE % (AUTO) 0.1 % (0.0-5.0); LYMPHOCYTES # (AUTO) 0.7 K/uL (0.60-3.4); LYMPHOCYTES % (AUTO) 9.1 (10.0-50.0); MEAN CORPUSCULAR HEMOGLOBIN 31.5 pg (27.0-31.0); MEAN CORPUSCULAR HGB CONC 33.4 (31.8-35.4); MEAN CORPUSCULAR VOLUME 94.2 fl (81.0-99.0); MONOCYTES # (AUTO) 0.3 K/uL (0.4-2.0); MONOCYTES % (AUTO) 3.4 (0-10); NEUTROPHILS # (AUTO) 6.4 K/ul (2.0-6.9); NEUTROPHILS % (AUTO) 86.2 % (42.2-75.2); PLATELET COUNT 196 10^3/uL (140-440); RDW COEFFICIENT OF VARIATION 12.7 % (11.6-14.8); RED BLOOD COUNT 4.29 10^6/ul (4.20-5.40); WHITE BLOOD COUNT 7.46 K/ul (4.6-10.2)
[2021-08-30 03:07] LABS: BEecf -6.2 (-2.0-3.0); COHb 1.9 (0.5-1.5); HCO3 18.6 (21-28); MetHb 1.5 (0-1.5); TCO2 19.5 (19-24); sO2 92.4 % (94-98); tHb 13.4 g/dl (11.7-17.4)
[2021-08-30 03:23] LABS: ALANINE AMINOTRANSFERASE 8.3 U/L (0-35); ALBUMIN 3.8 g/dL (3.5-5.0); ALKALINE PHOSPHATASE 57.5 U/L (53-141); BILIRUBIN,TOTAL 0.51 mg/dL (0.2-1.3); BLOOD UREA NITROGEN 18.4 mg/dL (7-17); CALCIUM 8.15 mg/dL (8.4-10.2); CARBON DIOXIDE 20.2 mmol/L (22-30.0); CREATININE 0.83 mg/dL (0.60-1.30); GLUCOSE 109.1 mg/dL (74-106); POTASSIUM 4.18 mmol/L (3.5-5.1); TOTAL PROTEIN 5.9 g/dL (6.3-8.2)
[2021-08-30 05:43] LABS: BILIRUBIN,URINE 1+ (NEGATIVE); CLARITY,URINE Clear (CLEAR); COLOR,URINE Yellow (YELLOW); GLUCOSE, URINE (UA) Negative (NEGATIVE); KETONES,URINE 3+ (NEGATIVE); LEUKOCYTE ESTERASE ,URINE Trace (NEGATIVE); NITRITE,URINE Negative (NEGATIVE); PH,URINE 5.5 (5-9); PROTEIN,URINE Negative (NEGATIVE); URINE, BLOOD 1+ (NEGATIVE); UROBILINOGEN,URINE 0.2 (0.2)
[2021-08-30 05:54] LABS: BACTERIA,URINE 1+ (NOT PRESENT); MUCUS,URINE 2+ (NOT PRESENT); STARCH,URINE TRACE (NOT PRESENT); URINE WBC, MICROSCOPIC 30-50 (0-2)
[2021-08-30] MEDS ORDERED: ROCEPHIN 1 GM/50 ML D5W 1 GM/50 ML BAG IV STA (06:24)
[2021-08-30] MEDS ORDERED: ZOFRAN 4 MG/2 ML IVP PRN (06:25)
[2021-08-30] MEDS: SODIUM CHLORIDE 1,000 ML IV SCH ×2 (06:33→20:51)
[2021-08-30] MEDS ORDERED: TORADOL IVP ONE (10:07)
[2021-08-30] MEDS ORDERED: DECADRON IM ONE (10:08)
[2021-08-30] MEDS: ASPIRIN EC PO SCH (10:40)
[2021-08-30] MEDS: LOVENOX SUBCUT SCH (10:40)
[2021-08-30] MEDS: ZETIA PO SCH (10:40)
[2021-08-30] MEDS: COZAAR PO SCH (10:41)
[2021-08-30 11:00] VITALS: BMI 30.3
[2021-08-30 11:23] LABS: ERYTHROCYTE SEDIMENTATION RATE 9 mm/hr (0-20)
[2021-08-30] MEDS: TYLENOL PO PRN ×2 (14:14→20:49)
[2021-08-30] MEDS ORDERED: NITROSTAT SL PRN (14:17)
[2021-08-30] MEDS ORDERED: ATROPINE SULFATE PFS IVP PRN (14:17)
[2021-08-30 15:05] LABS: CREATINE KINASE 48.4 U/L (30-135)
[2021-08-30 15:18] LABS: TROPONIN I < 0.012 ng/ml (0.0000-0.120)
[2021-08-30] MEDS: NORCO 5-325 PO SCH (20:02)
[2021-08-30] MEDS: ATIVAN PO SCH (20:02)
[2021-08-30 22:43] LABS: CREATINE KINASE 30.4 U/L (30-135)
[2021-08-30 22:56] LABS: TROPONIN I < 0.012 ng/ml (0.0000-0.120)
[2021-08-31] MEDS ORDERED: TORADOL IVP ONE (08:47)
[2021-08-31] MEDS ORDERED: DECADRON IM ONE (08:47)
[2021-08-31] MEDS: ROCEPHIN 1 GM/50 ML D5W 1 GM/50 ML BAG IV SCH (09:36)
[2021-08-31] MEDS: COZAAR PO SCH (09:36)
[2021-08-31] MEDS: ASPIRIN EC PO SCH (09:36)
[2021-08-31] MEDS: ZETIA PO SCH (09:36)
[2021-08-31] MEDS: LOVENOX SUBCUT SCH (09:36)
--- NOTE | 2021-08-31 09:42 | PCM.PROG ---
Attending Provider: ATTENDING PROVIDER: Dr. ALICE العلي DATE OF SERVICE: 08/31/21 SUBJECTIVE: This 81 year old /WHITE F was hospitalized 08/30/21 with multiple complaints mainly weakness, abscess of molar teeth, headache, UTI, unable to eat, nausea for days. The patient has no visible problems. She doesn't have any toothache. REVIEW OF SYSTEMS: CONSTITUTIONAL: No night sweats. No fatigue, malaise, lethargy. No fever or chills. HEENT: Face is symmetrical. Eyes: No visual changes. No eye pain. No eye discharge. ENT: No runny nose. No epistaxis. No sinus pain. No odynophagia. No congestion. RESPIRATORY: No cough, no congestion. No hemoptysis. No shortness of breath. CARDIOVASCULAR: No angina symptoms. No CHF symptoms. No atypical chest pain for CAD. No palpitations. No orthopnea.. GASTROINTESTINAL: No abdominal pain. No nausea or vomiting. No diarrhea or cons tipation. No hematemesis. No hematochezia. GENITOURINARY: No urgency. No frequency. No dysuria. No hematuria. No obstructive symptoms. No discharge. No pain. No significant abnormal bleeding. MUSCULOSKELETAL: No musculoskeletal pain; no joint swelling. NEUROLOGICAL: Awake, alert, oriented to time, place and person. No headache. No neck pain. No syncope. No seizures. No dizziness. PSYCHIATRIC: Not anxious. No depression. No suicidal thoughts. No homicidal thoughts. SKIN: No rash. No lesions. No wounds. ENDOCRINE: No unexplained weight loss. No weight gain. HEMATOLOGIC/LYMPHATIC: No anemia. No purpura. No petechiae. No prolonged or excessive bleeding. No palpable lymph nodes. PHYSICAL EXAMINATION: GENERAL: The patient is awake, alert and oriented, lying in bed in no distress. VITAL SIGNS: Temperature 98.4 F, Pulse 54, Respiratory Rate 18, BP 127/55, Pulse Ox 98% HEENT: Head normocephalic, atraumatic. Eyes: Extraocular muscles are intact. Pupils are equal, round and reactive to light and accommodation. Ears: No lesions. Nose appeared normal. Throat: No exudate or erythema. NECK: Supple. No JVD, no carotid bruit. No lymphadenopathy or thyromegaly. LUNGS: Clear to auscultation. Percussion note normal. Chest symmetrical. HEART: S1, S2, no S3. No murmurs. No cyanosis or clubbing. No ascites. Pulses: Dorsalis pedis and posterior tibial pulses +1 to +2 both sides. ABDOMEN: Soft. Non-tender. Bowel sounds active. No CVA tenderness. No mass felt. EXTREMITIES: No edema. Full range of motion of all extremities, equal. NEUROLOGIC: No focal deficit. Cranial nerves II through XII are grossly intact. No headache, no double vision or headache. SKIN: Warm and dry. Intact. Turgor-normal. LYMPHATIC: No palpable lymph nodes/no lymphedema. MUSCULOSKELETAL: Normal joints with no swelling. Muscle tone is normal. LAB REVIEW: 08/30/21 03:00 08/30/21 03:00 08/31/21 07:46: Free T4 1.18 08/30/21 22:29: Total Creatine Kinase 30.4, Troponin I < 0.012 08/30/21 14:49: Total Creatine Kinase 48.4, Troponin I < 0.012 08/30/21 10:30: ESR 9 ASSESSMENT: Please see below. 1. Weakness- resolved 2. Dehydration-Resolved with good skin turgor. PLAN: 1. Continue Toradol for headache along with Decadron 2. Sed rate elevated. No signs of temporal arthritis 3. COVID test negative three times 4. Abnormal U/A will followup on it. Plan and coordination of the patient's care discussed in the presence of Immunochemist and nurse. SCRIBED BY: BEN NAVARRO [employer] scribed while in presence of service performed by Dr. ALICE العلي on 08/31/21 ([id number])
[2021-08-31] MEDS ORDERED: DECADRON ONE (09:43)
[2021-08-31] MEDS ORDERED: TORADOL ONE (09:44)
[2021-08-31 11:41] LABS: FREE THYROXINE INDEX 1.9 (1.2-4.9); THYROXINE (T4) 6.5 ug/dL (4.5-12.0); TSH 0.223 uIU/mL (0.450-4.500)
--- NOTE | 2021-08-31 11:59 | HP ---
DATE OF SERVICE: 08/30/2021 REASON FOR HOSPITALIZATION: Frontal headache, weakness, tooth abscess with pain. HISTORY OF PRESENT ILLNESS: The patient has been in the emergency room a few days. COVID negative in past couple of weeks. Today was COVID negative. She also had nausea, no vomiting. According to the patient she is practically unable to walk with weakness. She has eaten much for past few days. PAST MEDICAL HISTORY/PAST SURGICAL HISTORY: History of coronary artery disease. Atherosclerosis Hypertension Obesity Generalized osteoarthritis Dyslipidemia unable to tolerate any Statins. Hysterectomy Appendectomy Tubal ligation REVIEW OF SYSTEMS: CONSTITUTIONAL: No night sweats. No fever or chills. Weakness and fatigue. HEENT: Eyes: No visual changes. No eye pain. No eye discharge. ENT: No runny nose. No epistaxis. No sinus pain. No sore throat. No odynophagia. No ear pain. No congestion. Left sided molar tooth abscess for past week or so. Pain. RESPIRATORY: No cough, no congestion. No hemoptysis. No shortness of breath. CARDIOVASCULAR: No angina symptoms. No CHF symptoms. No atypical chest pain for CAD. No palpitations. No PND. No orthopnea. GASTROINTESTINAL: No abdominal pain. Nausea. No diarrhea or constipation. No hematemesis. No hematochezia. Poor appetite. No vomiting. GENITOURINARY: No urgency. No frequency. No dysuria. No hematuria. No obstructive symptoms. No discharge. No pain. No significant abnormal bleeding. MUSCULOSKELETAL: No musculoskeletal pain. No joint swelling. No arthritis. NEUROLOGICAL: Headache frontal. No neck pain. No syncope. No seizures. No dizziness. Double vision. Unable to walk. History of headache for many years. PSYCHIATRIC: Not anxious. No depression. No suicidal thoughts. No homicidal thoughts. SKIN: No rash. No lesions. No wounds. ENDOCRINE: No unexplained weight loss. No weight gain. HEMATOLOGIC/LYMPHATIC: No anemia. No purpura. No petechiae. No prolonged or excessive bleeding. No palpable lymph nodes. PERSONAL/FAMILY/SOCIAL HISTORY: The patient is and lives with the . is practically disabled and demented. She takes care of him with his medical problems. 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 Does most of the activity of daily living. Drives car. Does all ADL's. Non-smoker. No alcohol abuse. MEDICATIONS: Lorazepam 1mg PO bedtime Ecotrin 81mg PO daily Cozaar 100mg PO daily Zetia 10mg PO daily Hydrocodone-acetaminophen 5-325mg PO bedtime Ondansetron 4mg PO Q 6 hours PRN ALLERGIES: Questions Azithromycin PHYSICAL EXAMINATION: GENERAL: The patient is oriented to time, place and person. HEENT: Head normocephalic, atraumatic. Eyes: Extraocular muscles are intact. Pupils are equal, round and reactive to light and accommodation. Ears: No lesions. Nose appeared normal. Throat: No exudate or erythema. FACE: Symmetrical. Left molar abscess is hard to appreciate. NECK: Supple. No JVD, no carotid bruit. No lymphadenopathy or thyromegaly. LUNGS: Decreased breath sounds. Percussion note normal. Chest symmetrical. HEART: S1, S2, no S3. I/ murmur. No cyanosis or clubbing. No ascites. Pulses: Dorsalis pedis and posterior tibial pulses +1 to +2 bilaterally. PMI not palpable on auscultation. ABDOMEN: Soft. Nontender. Bowel sounds active. No CVA tenderness. No mass felt. EXTREMITIES: Trace edema. Full range of motion of all extremities, equal. NEUROLOGIC: No focal deficit. Cranial nerves II through XII are grossly intact. No headache, no double vision or headache. SKIN: Not dry. Intact. Turgor - normal. LYMPHATIC: No palpable lymph nodes/no lymphedema. MUSCULOSKELETAL: Normal joints with no swelling. Muscle tone is normal. LABS: COVID negative. Hgb 13.5, hct 40, WBC 7,000 normal differential, creatinine 0.8, BUN 18, potassium 4.1, liver profile is negative. ABG pO2 65, pCO2 30,pH 7.40 with 92% saturation. U/A showed 3+ ketone, 1+ blood in the urine. 1+ bacteria, nitrates negative.Trace leukocyte. ASSESSMENT: 1. History of headache/nausea/weakness and dehydration 2. Abnormal U/A with possibility of early UTI 3. History of tooth abscess, unable to see her dentist 4. Headache could be from sinus infection, flu syndrome or could be from tooth abscess 5. History of coronary artery disease 6. Hypertension PLAN: 1. Given IV fluids 2. IV Rocephin 3. Telemetry orders 4. 1cc Decadron IM 5. Toradol 30mg IV one dose 6. Rocephin 1 gram IV Q 24 7. Zofran 4mg given in the emergency room 8. IV Bolus was given in the ER 9. Will also do SED RATE CRP. There is no suggestive of any temporal arteritis CONDITION: Stable. TIME SPENT: More than 70 minutes. MTDD
[2021-08-31] MEDS: ATIVAN PO SCH (21:40)
[2021-08-31] MEDS: NORCO 5-325 PO SCH (21:41)
[2021-09-01 05:37] VITALS: BP 177/73; TEMP 97.1
--- NOTE | 2021-09-01 09:18 | PN ---
08/30/2021: Level 5 08/31/2021: Intermediate 09/01/2021: D as in discharge MTDD
[2021-09-01] MEDS: ZETIA PO SCH (09:32)
[2021-09-01] MEDS: ROCEPHIN 1 GM/50 ML D5W 1 GM/50 ML BAG IV SCH (09:32)
[2021-09-01] MEDS: ASPIRIN EC PO SCH (09:32)
[2021-09-01] MEDS: COZAAR PO SCH (09:32)
[2021-09-01] MEDS: LOVENOX SUBCUT SCH (09:33)
--- NOTE | 2021-09-01 09:35 | PCM.PROG ---
Attending Provider: ATTENDING PROVIDER: Dr. ALICE العلي DATE OF SERVICE: 09/01/21 SUBJECTIVE: This 81 year old /WHITE F was hospitalized 08/30/21 with fatigue, headache, possible tooth infection. The patient was weak and unable to eat and had nausea. The patient's condition has improved remarkably. Headache has subsided completely. No pain in the dental area where she had supposed abscess. REVIEW OF SYSTEMS: CONSTITUTIONAL: No night sweats. No fatigue, malaise, lethargy. No fever or chills. HEENT: Eyes: No visual changes. No eye pain. No eye discharge. ENT: No runny nose. No epistaxis. No sinus pain. No odynophagia. No congestion. RESPIRATORY: No cough, no congestion. No hemoptysis. No shortness of breath. CARDIOVASCULAR: No angina symptoms. No CHF symptoms. No atypical chest pain for CAD. No palpitations. No orthopnea.. GASTROINTESTINAL: No abdominal pain. No nausea or vomiting. No diarrhea or constipation. No hematemesis. No hematochezia. GENITOURINARY: No urgency. No frequency. No dysuria. No hematuria. No obstructive symptoms. No discharge. No pain. No significant abnormal bleeding. MUSCULOSKELETAL: No musculoskeletal pain; no joint swelling. NEUROLOGICAL: Awake, alert, oriented to time, place and person. No headache. No neck pain. No syncope. No seizures. No dizziness. PSYCHIATRIC: Not anxious. No depression. No suicidal thoughts. No homicidal thoughts. SKIN: No rash. No lesions. No wounds. ENDOCRINE: No unexplained weight loss. No weight gain. HEMATOLOGIC/LYMPHATIC: No anemia. No purpura. No petechiae. No prolonged or excessive bleeding. No palpable lymph nodes. PHYSICAL EXAMINATION: GENERAL: The patient is awake, alert and oriented, sitting in bed in no distress. VITAL SIGNS: Temperature 97.1 F, Pulse 58, Respiratory Rate 18, BP 177/73, Pulse Ox 95% HEENT: Head normocephalic, atraumatic. Eyes: Extraocular muscles are intact. Pupils are equal, round and reactive to light and accommodation. Ears: No lesions. Nose appeared normal. Throat: No exudate or erythema. NECK: Supple. No JVD, no carotid bruit. No lymphadenopathy or thyromegaly. LUNGS: Decreased breath sounds. Clear to auscultation. Percussion note normal. Chest symmetrical. HEART: S1, S2, no S3. No murmurs. No cyanosis or clubbing. No ascites. Pulses: Dorsalis pedis and posterior tibial pulses +1 to +2 both sides. ABDOMEN: Soft. Non-tender. Bowel sounds active. No CVA tenderness. No mass felt. EXTREMITIES: No edema. Full range of motion of all extremities, equal. NEUROLOGIC: No focal deficit. Cranial nerves II through XII are grossly intact. No headache, no double vision or headache. SKIN: Warm and dry. Intact. Turgor-normal. LYMPHATIC: No palpable lymph nodes/no lymphedema. MUSCULOSKELETAL: Normal joints with no swelling. Muscle tone is normal. LAB REVIEW: 08/30/21 03:00 08/30/21 03:00 08/30/21 10:30: C-Reactive Prot, Quant 7 08/30/21 03:00: TSH 0.223 L, Free T4 Index 1.9, Thyroxine (T4) 6.5, T3 Uptake 29 ASSESSMENT: Please see below. 1. Possible UTI seems resolved. The patient was on Rocephin 2. The patient's dental abscess under control and strongly advised to see Dentist. The patient has no symptoms of UTI. PLAN: 1. Discharge on steroids small dose 2. Keflex 500mg TID for 5 days 3. Echo done before discharge 4. The patient has abnormal EKG which she has ST-T wave changes with precordial lead not changed. Troponin is negative. No symptoms of CHF or CAD. Plan and coordination of the patient's care discussed in the presence of Batch Dumper and nurse. CONDITION: Stable SCRIBED BY: Winsome MCCABE scribed while in presence of service performed by Dr. ALICE العلي on 09/01/21 ([id number])
--- NOTE | 2021-09-01 12:09 | CM.DICTOOL ---
ADMISSION: 08/30/21 06:30 DISCHARGE: SEPTEMBER 01, 2021 DATE OF SERVICE: 09/01/21 FINAL DIAGNOSIS DEHYDRATION, RESOLVED HEADACHE, RESOLVED DENTAL ABSCESS UTI HYPERTENSION CAD WITH STENT, 2018 DYSLIPIDEMIA BILATERAL CATARACT EXTRACTION HEART CATH HYSTERECTOMY ECHOCARDIOGRAM 09/01/21 LAST VITALS Temp Pulse Resp BP Pulse Ox 97.1 F L 58 L 18 177/73 H 96 09/01/21 05:36 09/01/21 05:36 09/01/21 05:36 09/01/21 05:36 09/01/21 09:54 TAKE THESE MEDICATIONS AT HOME Hydrocodone Bitart/Acetaminophen (Hydrocodone Bit/Acetaminophen 5/325 Mg Tablet) 1 tab PO BEDTIME [facility] Last Admin: 08/31/21 21:41 Dose: 1 tab Documented by: Aspirin (Aspirin 81 Mg Tablet.) 81 mg PO DAILYWM [facility] Last Admin: 09/01/21 09:32 Dose: 81 mg Documented by: Ezetimibe (Ezetimibe 10 Mg Tablet) 10 mg PO DAILY [facility] Last Admin: 09/01/21 09:32 Dose: 10 mg Documented by: Lorazepam (Lorazepam 1 Mg Tablet) 1 mg PO BEDTIME [facility] Last Admin: 08/31/21 21:40 Dose: 1 mg Documented by: Losartan Potassium (Losartan Potassium 100 Mg Tablet) 100 mg PO DAILY [facility] Last Admin: 09/01/21 09:32 Dose: 100 mg Documented by: Ondansetron 4 MG PO Q 6 HOURS PRN PRN Reason: nausea KEFLEX 500 MG PO TID FOR 10 DAYS (NEW RX) PREDNISONE 10 MG DAILY FOR 5 DAYS (NEW RX) ALLERGIES azithromycin [From Zithromax Z-Avtar] Allergy (Mild, Verified 08/24/21 05:38) Vomiting Drdqcsi-Nez-Hyz Reductase Inhibitor Adverse Reaction (Verified 08/24/21 05:38) Unknown DISCONTINUED MEDICATIONS ANTIBIOTIC PRESCRIBED BY DENTIST (PATIENT IS NOT SURE OF NAME) NEW PRESCRIPTIONS: KEFLEX 500 MG TID FOR 10 DAYS PREDNISONE 10 MG DAILY FOR 5 DAYS SMOKING: NOT APPLICABLE DISEASE SPECIFIC EDUCATION: HYDRATION NEW MEDICATIONS, INCLUDING ORAL STEROID AND RISK OF GI IRRITATION APPOINTMENT LAB REVIEW: 08/30/21 03:00 08/30/21 03:00 08/30/21 10:30: C-Reactive Prot, Quant 7 PLAN: DISCHARGE TO HOME DIET: REGULAR DIET TOLERATED ADEQUATE HYDRATION ENCOURAGED ACTIVITY: GRADUALLY RESUME TOLERATED AN APPOINTMENT IS SCHEDULED WITH DR. العلي/THAD YU APRN/VICKI HINES APRN ON August AT 2 PM PLEASE KEEP FOLLOW-UP APPOINTMENT WITH YOUR DENTIST CODE STATUS: DO NOT RESUSCITATE MRS. HOOVER IS ALERT AND ORIENTED X 4. SHE IS AGREEABLE FOR PLANS TO DISCHARGE HOME TODAY. MRS. HOOVER LIVES WITH HER . SHE IS INDEPENDENT WITH ALL ACTIVITIES OF DAILY LIVING. SHE DENIES NAUSEA AND IS CONSUMING 50-75% OF ALL MEALS. SHE IS CONTINENT OF BOWEL AND BLADDER. NO PAIN OR BURNING IS REPORTED WITH URINATION. SHE IS AMBULATORY IN THE ROOM PER SELF. NO STAFF ASSISTANCE OF ASSISTIVE DEVICE IS NEEDED. HYDRATION STATUS HAS IMPROVED. SKIN IS INTACT. SHE DENIES HEADACHE, DIZZINESS, NAUSEA OR FACIAL PAIN FROM ABSCESSED TOOTH. ALICE العلي MD
--- NOTE | 2021-09-02 13:29 | DS ---
DATE OF SERVICE: 09/01/2021 FINAL DIAGNOSIS: DEHYDRATION, RESOLVED HEADACHE, RESOLVED DENTAL ABSCESS UTI HYPERTENSION CAD WITH STENT, 2018 DYSLIPIDEMIA BILATERAL CATARACT EXTRACTION HEART CATH HYSTERECTOMY ECHOCARDIOGRAM 09/01/21 LAST VITALS: Temp Pulse Resp BP Pulse Ox 97.1 F L 58 L 18 177/73 H 96 09/01/21 05:36 09/01/21 05:36 09/01/21 05:36 09/01/21 05:36 09/01/21 09:54 DISCHARGE INSTRUCTIONS: DISCHARGE TO HOME. AN APPOINTMENT IS SCHEDULED WITH DR. العلي/THAD YU APRN/VICKI HINES APRN ON August AT 2 PM PLEASE KEEP FOLLOW-UP APPOINTMENT WITH YOUR DENTIST. CODE STATUS: DO NOT RESUSCITATE TAKE THESE MEDICATIONS AT HOME: Hydrocodone Bitart/Acetaminophen (Hydrocodone Bit/Acetaminophen 5/325 Mg Tablet) 1 tab PO BEDTIME [facility] Last Admin: 08/31/21 21:41 Dose: 1 tab Documented by: Aspirin (Aspirin 81 Mg Tablet.) 81 mg PO DAILYWM [facility] Last Admin: 09/01/21 09:32 Dose: 81 mg Documented by: Ezetimibe (Ezetimibe 10 Mg Tablet) 10 mg PO DAILY [facility] Last Admin: 09/01/21 09:32 Dose: 10 mg Documented by: Lorazepam (Lorazepam 1 Mg Tablet) 1 mg PO BEDTIME [facility] Last Admin: 08/31/21 21:40 Dose: 1 mg Documented by: Losartan Potassium (Losartan Potassium 100 Mg Tablet) 100 mg PO DAILY [facility] Last Admin: 09/01/21 09:32 Dose: 100 mg Documented by: Ondansetron 4 MG PO Q 6 HOURS PRN PRN Reason: nausea KEFLEX 500 MG PO TID FOR 10 DAYS (NEW RX) PREDNISONE 10 MG DAILY FOR 5 DAYS (NEW RX) ALLERGIES: azithromycin [From Zithromax Z-Avtar] Allergy (Mild, Verified 08/24/21 05:38) Vomiting Aqbynhq-Nnw-Ulh Reductase Inhibitor Adverse Reaction (Verified 08/24/21 05:38) Unknown DISCONTINUED MEDICATIONS: ANTIBIOTIC PRESCRIBED BY DENTIST (PATIENT IS NOT SURE OF NAME) NEW PRESCRIPTIONS: KEFLEX 500 MG TID FOR 10 DAYS PREDNISONE 10 MG DAILY FOR 5 DAYS SMOKING: NOT APPLICABLE DISEASE SPECIFIC EDUCATION: HYDRATION NEW MEDICATIONS, INCLUDING ORAL STEROID AND RISK OF GI IRRITATION APPOINTMENT LAB REVIEW: 08/30/21 03:00 08/30/21 03:00 08/30/21 10:30: C-Reactive Prot, Quant 7 DIET: REGULAR DIET TOLERATED ADEQUATE HYDRATION ENCOURAGED ACTIVITY: GRADUALLY RESUME TOLERATED HOSPITAL COURSE: The patient was hospitalized through the emergency room as she came to the emergency room with complaint of having headaches, nausea and left molar area pain for past week or so. She had not had anything to eat for last 2-3 days. She was unable to walk, weak and fatigue. COVID test has been negative 2-3 times in past 2-3 weeks. She was seen by dentist. She has supposed molar abscess on the left side. The patient was given Rocephin IM along with 1cc Decadron and Toradol 30mg IV with Zofran for her nausea. The patient improved within 24 hours and she felt a lot better. Esterase was elevated. The patient had visual problems. At the time of discharge she was feeling a lot better and had no headache or visual problems. No tenderness in the temporal area, no tenderness of the scalp area. Her pain was completely resolved. Clinically the patient doesn't seem to have any temporal arteritis. The patient was explained about differential diagnosis. She needs to be seen by clinical faculty and collections specialist. The patient declined flatly. 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 She say that she is feeling a lot better and wants to go home. Before discharge she had an echocardiogram done which showed normal LV contractility with borderline LVH and borderline LA cavity enlargement. The patient had no symptoms of coronary insufficiency. Her EKG shows ST-T wave changes in precordial leads which are more or less unchanged. The patient's appetite has improved. Ther was no nausea. She was discharged on Prednisone and Keflex. Keflex to be taken for 10 days. Strongly advised to go to the dentist. She is to be followed in 7 days. TIME SPENT: More than 60 minutes. TACOSD
--- NOTE | 2021-09-04 10:08 | ECHO2D ---
Date of Exam: 09/01/2021 Ordering Physician: DR. ALICE العلي Room #: 103 Reason for Echo: CARDIAC STENT, HTN M-Mode Normal Adult Results LV Dimensions Normal Adult Results AoV Opening excursions >1.6 >1.6 LVEDD-base- 3.5-5.8 5.0 Ao root dimensions 2.0-3.7 3.2 LVESD-base- 3.1-4.6 L. Atrium dimensions 1.9-3.8 4.1 Post. Wall thickness 0.8-1.1 1.1 IV septum (thickness) 0.7-1.2 1.2 Post. Wall excursion 0.72-1.3 NORMAL Septal motion NORMAL Systolic motion R. Ventricular cavity 1.5-2.0 NORMAL LVEF 60% 76% Paradoxical septal wall motion NORMAL 2-D : 2-D M Mode Echocardiogram was performed using apical four chamber and left parasternal long and short axis views. Mitral, tricuspid and aortic valves appear to be normal. Contractility of the left ventricle seems to be normal, so is the cavity size. ENLARGED LEFT ATRIAL CAVITY SIZE. Aortic root appears to be normal. There is no pericardial effusion. There is no thrombus noted in the left ventricle or left atrial cavity. M-MODE: MV: NORMAL AV: NORMAL TV: NORMAL PV: CHAMBER SIZE: ENLARGED LEFT ATRIAL CAVITY WALL MOTION: NORMAL PERICARDIUM: NORMAL INTERPRETATION: 1. LEFT VENTRICULAR HYPERTROPHY WITH ENLARGED LEFT ATRIAL CAVITY 2. NORMAL LEFT VENTRICLE CONTRACTILITY 3. NORMAL VALVES MTDD
== END 2021-09-01 14:45 | disposition home or self-care (01) | DRG 556 ==
LOC: ED 00:32 → MEDSURG A 06:30
PROVIDERS: ADMIT Internal Medicine; ATTEND Internal Medicine
DX: I10 Essential (primary) hypertension; I25.10 Atherosclerotic heart disease of native coronary artery without angina pectoris; Z20.822 Contact with and (suspected) exposure to COVID-19; E78.5 Hyperlipidemia, unspecified; N39.0 Urinary tract infection, site not specified; M62.81 Muscle weakness (generalized)